=== PATIENT | female | born 1960 | race Caucasian/White ===

== ENCOUNTER 2023-07-17 08:23 | Outpatient (RCR) | payer OTHER, SELFPAY ==
[2023-06-19] VITALS (11 sets, daily range): BP systolic 119–146; BP diastolic 68–92
[2023-06-19 09:05] LABS: % Basophils 1.3 % (0-2); % Eosinophils 4.5 % (0-6); % Immature Granulocytes 0.8 % (0-0.5); % Lymphocytes 22.5 % (20.5-51.1); % Neutrophils 61.9 % (42.2-75.2); Absolute Basophils 0.1 10^3/uL (0-0.2); Absolute Eosinophils 0.2 10^3/uL (0-0.7); Absolute Lymphocytes 0.9 10^3/uL (1.2-3.4); Absolute Monocytes 0.3 10^3/uL (0.1-0.6); Absolute Neutrophils 2.3 10^3/uL (1.4-6.5); Hematocrit 35.3 % (37.0-47.0); Hemoglobin 12.1 g/dL (12.0-16.0); Mean Corp Hgb Conc. 34.3 g/dL (33.0-37.0); Mean Corpuscular Hgb 28.7 pg (27.0-31.0); Mean Corpuscular Volume 83.6 fL (81.0-99.0); Mean Platelet Volume 9.9 fL (7.4-10.4); Nucleated Red Blood Cells % 0 %; Platelet Count 328 10^3/uL (130-400); Red Blood Cell Count 4.22 10^6/uL (4.20-5.40); Red Cell Dist. Width 13.2 % (11.5-14.5); White Blood Cell Count 3.8 10^3/uL (4.8-10.8)
[2023-06-19 09:19] LABS: Blood Urea Nitrogen 28 mg/dl (7-17); Calcium 9.2 mg/dl (8.4-10.2); Carbon Dioxide 26 mmol/L (22-30); Chloride 105 mmol/L (98-107); Glucose 105 mg/dl (70-99); Potassium 3.9 mmol/L (3.5-5.1); Sodium 135 mmol/L (135-145); eGFR > 60.00
[2023-06-19] MEDS: KEYTRUDA 108 MG IV (09:59)
[2023-06-19] MEDS: ALOXI 5 MG IV (10:35)
[2023-06-19] MEDS: PEPCID 52 MG IV (10:36)
[2023-06-19] MEDS: DECADRON 52 MG IV (10:59)
[2023-06-19] MEDS: BENADRYL 51 MG IV (11:26)
[2023-06-19] MEDS: TAXOL/PACLITAXEL 271.666699999999992 MG IV (11:54)
[2023-06-19] MEDS: PARAPLATIN 266 MG IV (13:06)
[2023-06-26 08:00] VITALS: BP 134/91
[2023-06-26 08:12] LABS: % Basophils 0.5 % (0-2); % Eosinophils 3.8 % (0-6); % Immature Granulocytes 1.6 % (0-0.5); % Lymphocytes 31.4 % (20.5-51.1); % Monocytes 8.9 % (1.7-9.3); % Neutrophils 53.8 % (42.2-75.2); Absolute Eosinophils 0.1 10^3/uL (0-0.7); Absolute Immature Granulocytes 0.1 10^3/uL (0-0.05); Absolute Lymphocytes 1.2 10^3/uL (1.2-3.4); Absolute Monocytes 0.3 10^3/uL (0.1-0.6); Hematocrit 37.5 % (37.0-47.0); Hemoglobin 12.6 g/dL (12.0-16.0); Mean Corp Hgb Conc. 33.6 g/dL (33.0-37.0); Mean Corpuscular Hgb 28.8 pg (27.0-31.0); Mean Corpuscular Volume 85.6 fL (81.0-99.0); Mean Platelet Volume 9.8 fL (7.4-10.4); Platelet Count 321 10^3/uL (130-400); Red Blood Cell Count 4.38 10^6/uL (4.20-5.40); Red Cell Dist. Width 13.6 % (11.5-14.5); White Blood Cell Count 3.7 10^3/uL (4.8-10.8)
[2023-06-26 08:36] LABS: Blood Urea Nitrogen 31 mg/dl (7-17); Calcium 9.3 mg/dl (8.4-10.2); Carbon Dioxide 24 mmol/L (22-30); Chloride 105 mmol/L (98-107); Glucose 180 mg/dl (70-99); Potassium 4.2 mmol/L (3.5-5.1); Sodium 137 mmol/L (135-145); eGFR > 60.00
[2023-06-26] MEDS: PEPCID 52 MG IV (09:28)
[2023-06-26] MEDS: ALOXI 5 MG IV (09:29)
[2023-06-26] MEDS: DECADRON 52 MG IV (09:57)
[2023-06-26] MEDS: BENADRYL 51 MG IV (10:22)
[2023-06-26] MEDS: TAXOL/PACLITAXEL 271.666699999999992 MG IV (10:55)
[2023-06-26 11:00] VITALS: BP 119/70
[2023-06-26 11:30] VITALS: BP 131/77
[2023-06-26 12:00] VITALS: BP 121/75
[2023-06-26] MEDS: PARAPLATIN 265.800000000000011 MG IV (12:05)
[2023-06-26 12:30] VITALS: BP 125/73
[2023-06-26 13:00] VITALS: BP 124/73
[2023-07-03] VITALS (7 sets, daily range): BP systolic 110–130; BP diastolic 67–76
[2023-07-03 08:10] LABS: % Basophils 0.9 % (0-2); % Eosinophils 2.7 % (0-6); % Immature Granulocytes 2.2 % (0-0.5); % Lymphocytes 25.3 % (20.5-51.1); % Monocytes 11.2 % (1.7-9.3); % Neutrophils 57.7 % (42.2-75.2); Absolute Eosinophils 0.1 10^3/uL (0-0.7); Absolute Immature Granulocytes 0.1 10^3/uL (0-0.05); Absolute Lymphocytes 1.1 10^3/uL (1.2-3.4); Absolute Monocytes 0.5 10^3/uL (0.1-0.6); Absolute Neutrophils 2.6 10^3/uL (1.4-6.5); Hematocrit 35.5 % (37.0-47.0); Hemoglobin 12.2 g/dL (12.0-16.0); Mean Corp Hgb Conc. 34.4 g/dL (33.0-37.0); Mean Corpuscular Hgb 29.4 pg (27.0-31.0); Mean Corpuscular Volume 85.5 fL (81.0-99.0); Mean Platelet Volume 9.4 fL (7.4-10.4); Platelet Count 280 10^3/uL (130-400); Red Blood Cell Count 4.15 10^6/uL (4.20-5.40); White Blood Cell Count 4.5 10^3/uL (4.8-10.8)
[2023-07-03 08:30] LABS: ALT (SGPT) 89 U/L (0-35); AST (SGOT) 54 U/L (14-36); Albumin 4.2 g/dl (3.5-5.0); Alkaline Phosphatase 92 U/L (38-126); Blood Urea Nitrogen 24 mg/dl (7-17); Calcium 9.2 mg/dl (8.4-10.2); Carbon Dioxide 25 mmol/L (22-30); Chloride 106 mmol/L (98-107); Glucose 140 mg/dl (70-99); Potassium 3.9 mmol/L (3.5-5.1); Sodium 137 mmol/L (135-145); Total Bilirubin 0.5 mg/dl (0.2-1.3); Total Protein 6.7 g/dl (6.3-8.2); eGFR > 60.00
[2023-07-03] MEDS: PEPCID 52 MG IV (09:06)
[2023-07-03] MEDS: ALOXI 5 MG IV (09:07)
[2023-07-03] MEDS: DECADRON 52 MG IV (09:30)
[2023-07-03] MEDS: BENADRYL 51 MG IV (09:58)
[2023-07-03 10:27] LABS: TSH 0.98 uIU/ml (0.47-4.68)
[2023-07-03] MEDS: TAXOL/PACLITAXEL 271.666699999999992 MG IV (10:38)
[2023-07-03] MEDS: PARAPLATIN 266 MG IV (11:41)
[2023-07-05 03:37] LABS: Total T3 (Sendout) 135 ng/dL (80-200)
[2023-07-10 07:55] VITALS: BP 148/82
[2023-07-10 08:25] LABS: % Basophils 0.8 % (0-2); % Eosinophils 2.8 % (0-6); % Immature Granulocytes 2.8 % (0-0.5); % Lymphocytes 22.4 % (20.5-51.1); % Monocytes 9.4 % (1.7-9.3); % Neutrophils 61.8 % (42.2-75.2); Absolute Basophils 0.1 10^3/uL (0-0.2); Absolute Eosinophils 0.2 10^3/uL (0-0.7); Absolute Immature Granulocytes 0.2 10^3/uL (0-0.05); Absolute Lymphocytes 1.4 10^3/uL (1.2-3.4); Absolute Monocytes 0.6 10^3/uL (0.1-0.6); Absolute Neutrophils 3.7 10^3/uL (1.4-6.5); Hematocrit 35.2 % (37.0-47.0); Mean Corp Hgb Conc. 34.1 g/dL (33.0-37.0); Mean Corpuscular Hgb 29.3 pg (27.0-31.0); Mean Corpuscular Volume 85.9 fL (81.0-99.0); Mean Platelet Volume 10.1 fL (7.4-10.4); Platelet Count 262 10^3/uL (130-400); Red Cell Dist. Width 14.9 % (11.5-14.5)
[2023-07-10 08:36] LABS: ALT (SGPT) 65 U/L (0-35); AST (SGOT) 42 U/L (14-36); Alkaline Phosphatase 92 U/L (38-126); Blood Urea Nitrogen 24 mg/dl (7-17); Carbon Dioxide 24 mmol/L (22-30); Chloride 105 mmol/L (98-107); Glucose 119 mg/dl (70-99); Sodium 134 mmol/L (135-145); Total Bilirubin 0.4 mg/dl (0.2-1.3); Total Protein 6.5 g/dl (6.3-8.2); eGFR > 60.00
[2023-07-10] MEDS: CATHFLO/ACTIVASE 2 MG IV (09:38)
[2023-07-10] MEDS: KEYTRUDA 108 MG IV (10:24)
[2023-07-10] MEDS: PEPCID 52 MG IV (11:04)
[2023-07-10] MEDS: ALOXI 5 MG IV (11:05)
[2023-07-10] MEDS: DECADRON 52 MG IV (11:26)
[2023-07-10] MEDS: BENADRYL 51 MG IV (11:51)
--- NOTE | 2023-07-10 12:05 | PTCARENOTE ---
Pt back from doctor's appointment, no blood return noted from left sc port despite multiple attempts and repositioning. Flushing easily; cath-zak ordered and given at 0935.
+blood return noted at 1020, flushing easily. will monitor.
[2023-07-10] MEDS: TAXOL/PACLITAXEL 271.666699999999992 MG IV (12:19)
[2023-07-10 12:30] VITALS: BP 136/76
[2023-07-10 13:00] VITALS: BP 124/79
[2023-07-10] MEDS: PARAPLATIN 266 MG IV (13:28)
[2023-07-10 13:30] VITALS: BP 120/77
[2023-07-10 14:00] VITALS: BP 143/91
[2023-07-10 14:30] VITALS: BP 126/73
--- NOTE | 2023-07-17 08:55 | PTCARENOTE ---
Pt came in today for chemotherapy, upon assessment, pt noted to have a small reddened pin size area above her left sc port. Pt offers no complaints of pain, however, notes 'I feel it more, where before I didn't feel it at all.' Denies fevers at
home, temp here was 97.9. Does report chills at home. Also c/o upper (along bra line) intermittent abdominal discomfort that she took ultram/ibuprofen at home for. Pt reports fair appetite, with no recent n/v/d/c. TT Dr. Springer and Ruthann Lemus,
awaiting response. Placed #22 p left arm cephalic iv and labs drawn. Pt resting comfortable at present, will continue to monitor
[2023-07-17 09:10] LABS: % Basophils 1.4 % (0-2); % Eosinophils 2.5 % (0-6); % Immature Granulocytes 2.3 % (0-0.5); % Lymphocytes 25.1 % (20.5-51.1); % Neutrophils 59.7 % (42.2-75.2); Absolute Basophils 0.1 10^3/uL (0-0.2); Absolute Eosinophils 0.1 10^3/uL (0-0.7); Absolute Immature Granulocytes 0.1 10^3/uL (0-0.05); Absolute Lymphocytes 1.1 10^3/uL (1.2-3.4); Absolute Monocytes 0.4 10^3/uL (0.1-0.6); Absolute Neutrophils 2.6 10^3/uL (1.4-6.5); Hemoglobin 11.8 g/dL (12.0-16.0); Mean Corp Hgb Conc. 33.7 g/dL (33.0-37.0); Mean Corpuscular Hgb 29.3 pg (27.0-31.0); Mean Corpuscular Volume 86.8 fL (81.0-99.0); Mean Platelet Volume 9.9 fL (7.4-10.4); Nucleated Red Blood Cells % 0 %; Platelet Count 323 10^3/uL (130-400); Red Blood Cell Count 4.03 10^6/uL (4.20-5.40); Red Cell Dist. Width 15.9 % (11.5-14.5); White Blood Cell Count 4.3 10^3/uL (4.8-10.8)
[2023-07-17 09:12] VITALS: BP 133/89
[2023-07-17 09:33] LABS: ALT (SGPT) 97 U/L (0-35); AST (SGOT) 60 U/L (14-36); Albumin 4.1 g/dl (3.5-5.0); Alkaline Phosphatase 89 U/L (38-126); Blood Urea Nitrogen 25 mg/dl (7-17); Calcium 9.3 mg/dl (8.4-10.2); Carbon Dioxide 26 mmol/L (22-30); Chloride 107 mmol/L (98-107); Glucose 137 mg/dl (70-99); Potassium 4.1 mmol/L (3.5-5.1); Sodium 135 mmol/L (135-145); Total Bilirubin 0.4 mg/dl (0.2-1.3); Total Protein 6.7 g/dl (6.3-8.2); eGFR > 60.00
--- NOTE | 2023-07-17 09:45 | PTCARENOTE ---
Per md request, pt sent over to [facility] office (next door in [place]), to have port and breast wound evaluated.
--- NOTE | 2023-07-17 10:06 | PTCARENOTE ---
Per Concha from [facility], pt sent to IR to get left sc port evaluated, but will return to unit when finished, and does want pt to get treated today. will follow.
[2023-07-17] MEDS: ALOXI 5 MG IV (11:11)
[2023-07-17] MEDS: PEPCID 52 MG IV (11:11)
[2023-07-17] MEDS: DECADRON 52 MG IV (11:36)
[2023-07-17] MEDS: BENADRYL 51 MG IV (12:02)
[2023-07-17] MEDS: TAXOL/PACLITAXEL 271.666699999999992 MG IV (12:28)
[2023-07-17 12:30] VITALS: BP 125/77
--- NOTE | 2023-07-17 12:42 | PTCARENOTE ---
1100: pt back from IR, offers no complaints.
[2023-07-17 13:00] VITALS: BP 141/76
[2023-07-17 13:30] VITALS: BP 137/78
[2023-07-17] MEDS: PARAPLATIN 266.300000000000011 MG IV (13:37)
[2023-07-17 14:00] VITALS: BP 136/80
[2023-07-17 14:30] VITALS: BP 132/77
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
== END 2023-07-17 23:59 | disposition home or self-care (01) ==
LOC: OID 08:23
PROVIDERS: ATTENDING PHYSICIAN Internal Medicine Hematology & Oncology; FAMILY PHYSICIAN Nurse Practitioner Adult Health
DX: Z51.11 Encounter for antineoplastic chemotherapy (principal); C50.111 Malignant neoplasm of central portion of right female breast; C50.211 Malignant neoplasm of upper-inner quadrant of right female breast
CPT/HCPCS: 80048; 80053; 84436; 84443; 84480; 85025; 96367; 96374; 96375; 96413; 96415; 96417; J2469; J2997; J9045; J9267; J9271

== ENCOUNTER → 2023-07-17 10:31 | Outpatient (REF) | payer OTHER, SELFPAY ==
--- NOTE | 2023-07-17 10:48 | W.PN.UPDATE ---
Update Note
Progress Note Update
63 yo female with h/o breast cancer comes today for port site check. She denies tenderness, fever or warmth. She notes some erythema around the venotomy site with visible suture
There is some mild erythema noted to the venotomy site. Portion of the suture is exposed without wound dehiscence. The are is mildly erythematous but not warm or tender.. The port pocket looks good. Incision is CDI. No fluctuance or erythema.
A/P: 63 yo female presents with mild erythema at the venotomy site of her port. There is no fluctuance. No warmth or tenderness. The suture is partially exposed without wound dehiscence
Gave Rx for Keflex 500 mg po qid x 7 days and told her not to use port today.
Advised her to call us for new or worsening symptoms
== END ==
LOC: RADI 10:31
PROVIDERS: ATTENDING PHYSICIAN Internal Medicine Hematology & Oncology; FAMILY PHYSICIAN Nurse Practitioner Adult Health
DX: Z45.2 Encounter for adjustment and management of vascular access device (principal)

== ENCOUNTER → 2023-07-24 14:08 | Outpatient (REF) | payer OTHER, SELFPAY | LOC: RCS 14:08 | PROVIDERS: ATTENDING PHYSICIAN Internal Medicine Hematology & Oncology; FAMILY PHYSICIAN Nurse Practitioner Adult Health; REFERRING PHYSICIAN Surgery | DX: Z01.818 Encounter for other preprocedural examination (principal); C50.111 Malignant neoplasm of central portion of right female breast; C50.211 Malignant neoplasm of upper-inner quadrant of right female breast | CPT/HCPCS: 93306 ==

== ENCOUNTER → 2023-07-25 10:43 | Outpatient (REF) | payer OTHER, SELFPAY | LOC: PET 10:43 | PROVIDERS: ATTENDING PHYSICIAN Internal Medicine Hematology & Oncology | DX: C50.211 Malignant neoplasm of upper-inner quadrant of right female breast (principal) | CPT/HCPCS: 78815; A9552 ==

== ENCOUNTER 2023-07-29 06:20 | Day surgery (SDC) | payer OTHER, SELFPAY ==
[2023-07-29] VITALS (10 sets, daily range): BP systolic 82–146; BP diastolic 49–86; BMI 25.8
[2023-07-29] MEDS: TYLENOL 1000 MG PO (08:15)
[2023-07-29] MEDS: LOVENOX 40 MG SC (08:16)
--- NOTE | 2023-07-29 08:37 | PTCARENOTE ---
Patient has a port and Dr. Herzog wants the port accessed. Patient states that the port is not working the last time it was accessed. Dr. Herzog wanted it used in case a port study needs to be done. Will monitor patient.
--- NOTE | 2023-07-29 08:55 | PTCARENOTE ---
port accessed with good blood return.
== END 2023-07-29 12:18 | disposition home or self-care (01) ==
LOC: SDS 06:20
PROVIDERS: ATTENDING PHYSICIAN Surgery
DX: C50.911 Malignant neoplasm of unspecified site of right female breast (principal)
CPT/HCPCS: 19120; 88305; 88341; 88360; 93005

== ENCOUNTER 2023-08-14 07:38 | Outpatient (RCR) | payer OTHER, SELFPAY ==
[2023-08-07] VITALS (8 sets, daily range): BP systolic 130–142; BP diastolic 63–98
[2023-08-07 09:11] LABS: % Basophils 0.8 % (0-2); % Eosinophils 3.4 % (0-6); % Immature Granulocytes 0.8 % (0-0.5); % Lymphocytes 18.3 % (20.5-51.1); % Monocytes 14.6 % (1.7-9.3); % Neutrophils 62.1 % (42.2-75.2); Absolute Basophils 0.1 10^3/uL (0-0.2); Absolute Eosinophils 0.2 10^3/uL (0-0.7); Absolute Immature Granulocytes 0.1 10^3/uL (0-0.05); Absolute Lymphocytes 1.1 10^3/uL (1.2-3.4); Absolute Monocytes 0.9 10^3/uL (0.1-0.6); Absolute Neutrophils 3.7 10^3/uL (1.4-6.5); Hematocrit 38.4 % (37.0-47.0); Hemoglobin 12.8 g/dL (12.0-16.0); Mean Corp Hgb Conc. 33.3 g/dL (33.0-37.0); Mean Corpuscular Hgb 29.4 pg (27.0-31.0); Mean Corpuscular Volume 88.1 fL (81.0-99.0); Mean Platelet Volume 9.2 fL (7.4-10.4); Platelet Count 333 10^3/uL (130-400); Red Blood Cell Count 4.36 10^6/uL (4.20-5.40); Red Cell Dist. Width 16.5 % (11.5-14.5); White Blood Cell Count 5.9 10^3/uL (4.8-10.8)
[2023-08-07 09:29] LABS: ALT (SGPT) 237 U/L (0-35); AST (SGOT) 203 U/L (14-36); Albumin 4.1 g/dl (3.5-5.0); Alkaline Phosphatase 140 U/L (38-126); Blood Urea Nitrogen 21 mg/dl (7-17); Calcium 9.2 mg/dl (8.4-10.2); Carbon Dioxide 26 mmol/L (22-30); Chloride 105 mmol/L (98-107); Glucose 116 mg/dl (70-99); Sodium 135 mmol/L (135-145); Total Bilirubin 0.4 mg/dl (0.2-1.3); Total Protein 6.7 g/dl (6.3-8.2); eGFR > 60.00
[2023-08-07] MEDS: EMEND 150 MG IV (10:31)
[2023-08-07] MEDS: ALOXI 5 MG IV (11:12)
[2023-08-07] MEDS: DECADRON 51 MG IV (11:12)
[2023-08-07] MEDS: ADRIAMYCIN 25 MG IV (11:45)
[2023-08-07] MEDS: CYCLOPHOSPHAMIDE 255.039999999999992 MG IV (11:57)
[2023-08-08] MEDS: NSS 500 IV (13:11)
[2023-08-08] MEDS: NYVEPRIA 6 MG SC (13:12)
[2023-08-08 13:27] VITALS: BP 139/78
--- NOTE | 2023-08-08 14:25 | HP.FOC2 ---
Focused History & Physical
- Chief Complaint
HPI:
Chief Complaint: erythema under bilateral breasts
- Review of Systems
Review of Pertinent Systems: All Systems Negative Except for the Following Positives (nausea, pain to right chest wall known breast lesion)
- Medication
See Medication form for detailed medications: Yes
Medication List (including Herbals & OTC):
magnesium 250 mg tablet 500 mg PO DAILY 05/27/23
tramadol 50 mg tablet 50 mg PO .Q8 PRN pain 05/27/23
prochlorperazine maleate 10 mg tablet (Compazine) 10 mg PO PRN PRN nausea 06/19/23
Tylenol 1,000 mg PO .Q8 PRN pain 08/07/23
nystatin 100,000 unit/gram topical powder 1 applic topical BID 30 days #30 grams 08/08/23
Medications Reviewed: Yes
- Allergies and Reactions
Patient has Allergies: No
Noted Allergies and Reactions:
Allergy/AdvReac Type Severity Reaction Status Date / Time
No Known Allergies Allergy Unverified 08/08/23 13:26
- Pertinent Physical Exam
All Other Systems: Negative
Head/Neck: Normal
Lungs: Normal
Heart: Normal
Abdomen: Normal
Extremities: Normal
Neurological: Normal
Other: breast with wound to right chest wall 1'oclock 4x3 raise 1/2 inch
- Diagnosis / Assessment
History of breast cancer undergoing neoadjuvant treatment with chemotherapy. Treated 08/07/2023 with adriamycin and cytoxan. here today for neulasta and fluids.
- Plan / Procedure
Plan:
Start nystatin under bilateral breasts bid as needed for rash. Rx sent electronically.
Consider crushing flagyl and sprinkling on wound if foul odor develops. Has rx. Tried orally but unable to tolerate.
Continue to follow.
Call for questions or concerns. Contact information known and re-provided.
Follow up with Dr. Springer in 2 weeks for office visit prior to next AC infusion.
[2023-08-14 08:19] LABS: Hematocrit 37.6 % (37.0-47.0); Hemoglobin 12.6 g/dL (12.0-16.0); Mean Corp Hgb Conc. 33.5 g/dL (33.0-37.0); Mean Corpuscular Hgb 29.6 pg (27.0-31.0); Mean Corpuscular Volume 88.3 fL (81.0-99.0); Mean Platelet Volume 9.6 fL (7.4-10.4); Platelet Count 281 10^3/uL (130-400); Red Blood Cell Count 4.26 10^6/uL (4.20-5.40); Red Cell Dist. Width 16.5 % (11.5-14.5); White Blood Cell Count 10.4 10^3/uL (4.8-10.8)
[2023-08-14 08:49] LABS: ALT (SGPT) 89 U/L (0-35); AST (SGOT) 41 U/L (14-36); Albumin 4.2 g/dl (3.5-5.0); Alkaline Phosphatase 141 U/L (38-126); Blood Urea Nitrogen 26 mg/dl (7-17); Calcium 9.5 mg/dl (8.4-10.2); Carbon Dioxide 26 mmol/L (22-30); Chloride 102 mmol/L (98-107); Glucose 104 mg/dl (70-99); Potassium 4.1 mmol/L (3.5-5.1); Sodium 134 mmol/L (135-145); Total Bilirubin 0.2 mg/dl (0.2-1.3); Total Protein 6.9 g/dl (6.3-8.2); eGFR > 60.00
[2023-08-14 11:34] LABS: Absolute Neutrophils -Man Diff 5.5 10^3/uL (1.4-6.5); Band Neutrophils 4 % (0-3); Lymphocytes 17 % (20-51); Segmented Neutrophils 49 % (42-75)
[2023-08-14 11:35] LABS: Eosinophils 8 % (0-6); Metamyelocytes 4 % (-); Monocytes 16 % (2-9); Myelocytes 2 % (-); Normal RBC Morphology Yes; Platelets Checked Yes; Total Cells Counted 100
== END 2023-08-17 23:59 | disposition home or self-care (01) ==
LOC: OID 07:38
PROVIDERS: ATTENDING PHYSICIAN Internal Medicine Hematology & Oncology; FAMILY PHYSICIAN Nurse Practitioner Adult Health
DX: Z51.11 Encounter for antineoplastic chemotherapy (principal); I10 Essential (primary) hypertension (principal); C50.111 Malignant neoplasm of central portion of right female breast; C50.211 Malignant neoplasm of upper-inner quadrant of right female breast; Z17.0 Estrogen receptor positive status [ER+]
CPT/HCPCS: 36415; 80053; 85025; 96360; 96367; 96372; 96375; 96411; 96413; J1453; J2469; J9000; J9070; Q5122

== ENCOUNTER 2023-09-09 08:31 | Outpatient (RCR) | payer OTHER, SELFPAY ==
[2023-08-21] VITALS (7 sets, daily range): BP systolic 113–153; BP diastolic 68–91
[2023-08-21 09:43] LABS: % Basophils 1.1 % (0-2); % Eosinophils 3.4 % (0-6); % Immature Granulocytes 4.1 % (0-0.5); % Lymphocytes 24.5 % (20.5-51.1); % Monocytes 12.8 % (1.7-9.3); % Neutrophils 54.1 % (42.2-75.2); Absolute Basophils 0.1 10^3/uL (0-0.2); Absolute Eosinophils 0.2 10^3/uL (0-0.7); Absolute Immature Granulocytes 0.2 10^3/uL (0-0.05); Absolute Lymphocytes 1.2 10^3/uL (1.2-3.4); Absolute Monocytes 0.6 10^3/uL (0.1-0.6); Absolute Neutrophils 2.5 10^3/uL (1.4-6.5); Hemoglobin 12.5 g/dL (12.0-16.0); Mean Corp Hgb Conc. 32.9 g/dL (33.0-37.0); Mean Corpuscular Hgb 29.1 pg (27.0-31.0); Mean Corpuscular Volume 88.6 fL (81.0-99.0); Mean Platelet Volume 9.8 fL (7.4-10.4); Platelet Count 286 10^3/uL (130-400); Red Blood Cell Count 4.29 10^6/uL (4.20-5.40); Red Cell Dist. Width 16.9 % (11.5-14.5); White Blood Cell Count 4.7 10^3/uL (4.8-10.8)
[2023-08-21 10:33] LABS: ALT (SGPT) 66 U/L (0-35); AST (SGOT) 51 U/L (14-36); Albumin 4.1 g/dl (3.5-5.0); Alkaline Phosphatase 117 U/L (38-126); Blood Urea Nitrogen 29 mg/dl (7-17); Calcium 9.6 mg/dl (8.4-10.2); Carbon Dioxide 23 mmol/L (22-30); Chloride 108 mmol/L (98-107); Glucose 95 mg/dl (70-99); Potassium 4.2 mmol/L (3.5-5.1); Sodium 137 mmol/L (135-145); Total Bilirubin 0.3 mg/dl (0.2-1.3); Total Protein 6.7 g/dl (6.3-8.2); eGFR > 60.00
[2023-08-21] MEDS: ALOXI 5 MG IV (10:44)
[2023-08-21] MEDS: EMEND 150 MG IV (10:44)
[2023-08-21] MEDS: DECADRON 51 MG IV (11:20)
[2023-08-21] MEDS: ADRIAMYCIN 50 MG IV (11:51)
[2023-08-21] MEDS: CYCLOPHOSPHAMIDE 255.039999999999992 MG IV (12:03)
[2023-08-22 13:45] VITALS: BP 155/95
[2023-08-22] MEDS: NYVEPRIA 6 MG SC (13:53)
[2023-08-29 09:01] LABS: Hematocrit 34.2 % (37.0-47.0); Hemoglobin 11.7 g/dL (12.0-16.0); Mean Corp Hgb Conc. 34.2 g/dL (33.0-37.0); Mean Corpuscular Hgb 29.3 pg (27.0-31.0); Mean Corpuscular Volume 85.5 fL (81.0-99.0); Mean Platelet Volume 10.6 fL (7.4-10.4); Platelet Count 262 10^3/uL (130-400); Red Cell Dist. Width 16.8 % (11.5-14.5); White Blood Cell Count 3.3 10^3/uL (4.8-10.8)
[2023-08-29 09:38] LABS: ALT (SGPT) 573 U/L (0-35); AST (SGOT) 122 U/L (14-36); Albumin 4.4 g/dl (3.5-5.0); Alkaline Phosphatase 232 U/L (38-126); Blood Urea Nitrogen 13 mg/dl (7-17); Calcium 9.9 mg/dl (8.4-10.2); Carbon Dioxide 22 mmol/L (22-30); Chloride 107 mmol/L (98-107); Glucose 117 mg/dl (70-99); Potassium 3.9 mmol/L (3.5-5.1); Sodium 136 mmol/L (135-145); Total Bilirubin 0.4 mg/dl (0.2-1.3); eGFR > 60.00
[2023-08-29 10:41] LABS: Absolute Neutrophils -Man Diff 1.5 10^3/uL (1.4-6.5); Band Neutrophils 0 % (0-3); Eosinophils 4 % (0-6); Lymphocytes 30 % (20-51); Monocytes 18 % (2-9); Platelets Checked Yes; Segmented Neutrophils 48 % (42-75)
[2023-08-29 10:42] LABS: Anisocytosis 1+; Hypochromasia Slight; Normal RBC Morphology No; Total Cells Counted 100
[2023-09-02 09:47] LABS: ALT (SGPT) 207 U/L (0-35); AST (SGOT) 44 U/L (14-36); Albumin 4.4 g/dl (3.5-5.0); Alkaline Phosphatase 166 U/L (38-126); Direct Bilirubin 0.3 mg/dl (0.0-0.4); Total Bilirubin 0.3 mg/dl (0.2-1.3); Total Protein 6.8 g/dl (6.3-8.2)
[2023-09-02 10:19] LABS: Hepatitis B Surface Antigen Negative (Negative)
[2023-09-02 11:06] LABS: Hepatitis B Core Ab, Total Negative (Negative); Hepatitis B Surface Antibody Negative
[2023-09-03 10:06] LABS: % Basophils 0.7 % (0-2); % Eosinophils 0.8 % (0-6); % Lymphocytes 15.3 % (20.5-51.1); % Monocytes 12.1 % (1.7-9.3); % Neutrophils 61.1 % (42.2-75.2); Absolute Basophils 0.1 10^3/uL (0-0.2); Absolute Eosinophils 0.1 10^3/uL (0-0.7); Absolute Immature Granulocytes 0.9 10^3/uL (0-0.05); Absolute Lymphocytes 1.3 10^3/uL (1.2-3.4); Absolute Monocytes 1.1 10^3/uL (0.1-0.6); Absolute Neutrophils 5.3 10^3/uL (1.4-6.5); Hematocrit 35.9 % (37.0-47.0); Hemoglobin 11.9 g/dL (12.0-16.0); Mean Corp Hgb Conc. 33.1 g/dL (33.0-37.0); Mean Corpuscular Hgb 29.6 pg (27.0-31.0); Mean Corpuscular Volume 89.3 fL (81.0-99.0); Mean Platelet Volume 9.8 fL (7.4-10.4); Platelet Count 364 10^3/uL (130-400); Red Blood Cell Count 4.02 10^6/uL (4.20-5.40); Red Cell Dist. Width 17.5 % (11.5-14.5); White Blood Cell Count 8.7 10^3/uL (4.8-10.8)
[2023-09-03 10:48] LABS: ALT (SGPT) 150 U/L (0-35); AST (SGOT) 38 U/L (14-36); Albumin 4.4 g/dl (3.5-5.0); Alkaline Phosphatase 154 U/L (38-126); Blood Urea Nitrogen 23 mg/dl (7-17); Calcium 10.1 mg/dl (8.4-10.2); Carbon Dioxide 26 mmol/L (22-30); Chloride 104 mmol/L (98-107); Glucose 122 mg/dl (70-99); Potassium 4.1 mmol/L (3.5-5.1); Sodium 137 mmol/L (135-145); Total Bilirubin 0.3 mg/dl (0.2-1.3); Total Protein 6.8 g/dl (6.3-8.2); eGFR > 60.00
[2023-09-04 03:25] LABS: F-Actin Antibody IgG 4 Units (0-19)
[2023-09-04 03:34] LABS: ANA, IgG Reflex to HEp-2 None Detected (None Detected)
[2023-09-04 10:03] VITALS: BP 142/78
[2023-09-04] MEDS: EMEND 150 MG IV (11:22)
[2023-09-04] MEDS: DECADRON 51 MG IV (11:58)
[2023-09-04] MEDS: ALOXI 5 MG IV (11:58)
[2023-09-04 12:38] VITALS: BP 131/70
[2023-09-04] MEDS: ADRIAMYCIN 25 MG IV (12:40)
[2023-09-04] MEDS: CYCLOPHOSPHAMIDE 255.039999999999992 MG IV (12:51)
[2023-09-04 13:00] VITALS: BP 136/72
[2023-09-04 13:30] VITALS: BP 135/71
[2023-09-04 14:00] VITALS: BP 133/68
[2023-09-05] MEDS: NYVEPRIA 6 MG SC (13:26)
[2023-09-05 14:17] VITALS: BP 150/76
[2023-09-09 09:05] LABS: % Basophils 0.2 % (0-2); % Eosinophils 0.3 % (0-6); % Immature Granulocytes 1.3 % (0-0.5); % Lymphocytes 8.5 % (20.5-51.1); % Monocytes 8.5 % (1.7-9.3); % Neutrophils 81.2 % (42.2-75.2); Absolute Immature Granulocytes 0.2 10^3/uL (0-0.05); Absolute Neutrophils 9.9 10^3/uL (1.4-6.5); Hematocrit 33.9 % (37.0-47.0); Hemoglobin 11.2 g/dL (12.0-16.0); Mean Corpuscular Hgb 29.7 pg (27.0-31.0); Mean Corpuscular Volume 89.9 fL (81.0-99.0); Mean Platelet Volume 9.4 fL (7.4-10.4); Platelet Count 360 10^3/uL (130-400); Red Blood Cell Count 3.77 10^6/uL (4.20-5.40); Red Cell Dist. Width 17.8 % (11.5-14.5); White Blood Cell Count 12.2 10^3/uL (4.8-10.8)
[2023-09-09 09:34] LABS: ALT (SGPT) 46 U/L (0-35); AST (SGOT) 27 U/L (14-36); Albumin 4.2 g/dl (3.5-5.0); Alkaline Phosphatase 188 U/L (38-126); Direct Bilirubin 0.3 mg/dl (0.0-0.4); Total Bilirubin 0.3 mg/dl (0.2-1.3); Total Protein 6.5 g/dl (6.3-8.2)
== END 2023-09-15 15:53 | disposition home or self-care (01) ==
LOC: OID 08:31
PROVIDERS: ATTENDING PHYSICIAN Internal Medicine Hematology & Oncology; FAMILY PHYSICIAN Nurse Practitioner Adult Health
DX: Z51.11 Encounter for antineoplastic chemotherapy (principal); C50.111 Malignant neoplasm of central portion of right female breast; C50.211 Malignant neoplasm of upper-inner quadrant of right female breast; Z17.0 Estrogen receptor positive status [ER+]
CPT/HCPCS: 36415; 80053; 80076; 85025; 86015; 86038; 86704; 86706; 87340; 96365; 96367; 96368; 96372; 96375; 96411; 96413; J1453; J2469; J9000; J9070; Q5122

== ENCOUNTER → 2023-09-16 08:35 | Outpatient (REF) | payer OTHER, SELFPAY ==
[2023-09-16 09:40] LABS: ALT (SGPT) 44 U/L (0-35); AST (SGOT) 32 U/L (14-36); Albumin 4.2 g/dl (3.5-5.0); Alkaline Phosphatase 125 U/L (38-126); Direct Bilirubin 0.3 mg/dl (0.0-0.4); Total Bilirubin 0.3 mg/dl (0.2-1.3); Total Protein 6.8 g/dl (6.3-8.2)
== END ==
LOC: OIDL 08:35
PROVIDERS: ATTENDING PHYSICIAN Internal Medicine Hematology & Oncology
DX: C50.111 Malignant neoplasm of central portion of right female breast (principal); C50.211 Malignant neoplasm of upper-inner quadrant of right female breast
CPT/HCPCS: 36415; 80076

== ENCOUNTER → 2023-10-16 14:27 | Outpatient (REF) | payer OTHER, SELFPAY | LOC: RAD 14:27 | PROVIDERS: ATTENDING PHYSICIAN Nurse Practitioner Family; FAMILY PHYSICIAN Nurse Practitioner Adult Health | DX: C50.111 Malignant neoplasm of central portion of right female breast (principal); C50.211 Malignant neoplasm of upper-inner quadrant of right female breast | CPT/HCPCS: 71046 ==

== ENCOUNTER 2023-10-17 13:03 | Outpatient (RCR) | payer OTHER, SELFPAY ==
[2023-09-18 08:28] LABS: % Basophils 0.5 % (0-2); % Eosinophils 0.5 % (0-6); % Immature Granulocytes 9.1 % (0-0.5); % Lymphocytes 10.7 % (20.5-51.1); % Monocytes 11.1 % (1.7-9.3); % Neutrophils 68.1 % (42.2-75.2); Absolute Basophils 0.1 10^3/uL (0-0.2); Absolute Eosinophils 0.1 10^3/uL (0-0.7); Absolute Immature Granulocytes 1.4 10^3/uL (0-0.05); Absolute Lymphocytes 1.6 10^3/uL (1.2-3.4); Absolute Monocytes 1.7 10^3/uL (0.1-0.6); Absolute Neutrophils 10.4 10^3/uL (1.4-6.5); Hematocrit 37.4 % (37.0-47.0); Hemoglobin 12.6 g/dL (12.0-16.0); Mean Corp Hgb Conc. 33.7 g/dL (33.0-37.0); Mean Corpuscular Hgb 29.8 pg (27.0-31.0); Mean Corpuscular Volume 88.4 fL (81.0-99.0); Mean Platelet Volume 9.7 fL (7.4-10.4); Platelet Count 266 10^3/uL (130-400); Red Blood Cell Count 4.23 10^6/uL (4.20-5.40); Red Cell Dist. Width 18.1 % (11.5-14.5); White Blood Cell Count 15.3 10^3/uL (4.8-10.8)
[2023-09-18 09:23] LABS: ALT (SGPT) 50 U/L (0-35); AST (SGOT) 34 U/L (14-36); Albumin 4.3 g/dl (3.5-5.0); Alkaline Phosphatase 113 U/L (38-126); Blood Urea Nitrogen 31 mg/dl (7-17); Calcium 9.5 mg/dl (8.4-10.2); Carbon Dioxide 23 mmol/L (22-30); Chloride 106 mmol/L (98-107); Glucose 107 mg/dl (70-99); Potassium 4.3 mmol/L (3.5-5.1); Sodium 136 mmol/L (135-145); Total Bilirubin 0.3 mg/dl (0.2-1.3); Total Protein 6.8 g/dl (6.3-8.2); eGFR > 60.00
[2023-09-18] MEDS: CATHFLO/ACTIVASE 2 MG IV (09:32)
[2023-09-18 09:50] VITALS: BP 149/70
[2023-09-18] MEDS: ALOXI 5 MG IV (10:31)
[2023-09-18] MEDS: EMEND 150 MG IV (10:32)
[2023-09-18] MEDS: DECADRON 51 MG IV (11:10)
--- NOTE | 2023-09-18 11:34 | PTCARENOTE ---
0915: Pt had no blood return from her left sc port this am despite multiple attempts; cath-zak ordered and given.
1025: +blood return noted from left sc port will follow.
[2023-09-18] MEDS: ADRIAMYCIN 50 MG IV (11:42)
[2023-09-18] MEDS: CYCLOPHOSPHAMIDE 255.039999999999992 MG IV (11:43)
[2023-09-18 12:55] VITALS: BP 127/78
[2023-09-19 13:00] VITALS: BP 158/85
[2023-09-19] MEDS: NYVEPRIA 6 MG SC (13:08)
[2023-09-25 08:07] LABS: % Basophils 0.4 % (0-2); % Eosinophils 3.9 % (0-6); % Immature Granulocytes 3.4 % (0-0.5); % Lymphocytes 13.3 % (20.5-51.1); Absolute Eosinophils 0.2 10^3/uL (0-0.7); Absolute Immature Granulocytes 0.2 10^3/uL (0-0.05); Absolute Lymphocytes 0.8 10^3/uL (1.2-3.4); Absolute Monocytes 0.8 10^3/uL (0.1-0.6); Absolute Neutrophils 3.7 10^3/uL (1.4-6.5); Hematocrit 35.7 % (37.0-47.0); Hemoglobin 11.7 g/dL (12.0-16.0); Mean Corp Hgb Conc. 32.8 g/dL (33.0-37.0); Mean Corpuscular Hgb 29.5 pg (27.0-31.0); Mean Corpuscular Volume 89.9 fL (81.0-99.0); Mean Platelet Volume 10.6 fL (7.4-10.4); Platelet Count 199 10^3/uL (130-400); Red Blood Cell Count 3.97 10^6/uL (4.20-5.40); Red Cell Dist. Width 17.8 % (11.5-14.5); White Blood Cell Count 5.6 10^3/uL (4.8-10.8)
[2023-09-25 09:43] LABS: ALT (SGPT) 37 U/L (0-35); AST (SGOT) 23 U/L (14-36); Alkaline Phosphatase 125 U/L (38-126); Blood Urea Nitrogen 25 mg/dl (7-17); Calcium 9.3 mg/dl (8.4-10.2); Carbon Dioxide 26 mmol/L (22-30); Chloride 106 mmol/L (98-107); Glucose 133 mg/dl (70-99); Potassium 3.9 mmol/L (3.5-5.1); Sodium 134 mmol/L (135-145); Total Bilirubin 0.3 mg/dl (0.2-1.3); Total Protein 6.4 g/dl (6.3-8.2); eGFR > 60.00
[2023-09-26 16:27] LABS: NT-proBNP 32.5 pg/ml
[2023-10-02 08:30] VITALS: BP 157/83
[2023-10-02 08:53] LABS: % Basophils 0.9 % (0-2); % Eosinophils 3.2 % (0-6); % Lymphocytes 13.7 % (20.5-51.1); % Monocytes 12.1 % (1.7-9.3); % Neutrophils 62.1 % (42.2-75.2); Absolute Basophils 0.1 10^3/uL (0-0.2); Absolute Eosinophils 0.3 10^3/uL (0-0.7); Absolute Immature Granulocytes 0.8 10^3/uL (0-0.05); Absolute Lymphocytes 1.4 10^3/uL (1.2-3.4); Absolute Monocytes 1.2 10^3/uL (0.1-0.6); Absolute Neutrophils 6.1 10^3/uL (1.4-6.5); Hematocrit 38.5 % (37.0-47.0); Hemoglobin 12.6 g/dL (12.0-16.0); Mean Corp Hgb Conc. 32.7 g/dL (33.0-37.0); Mean Corpuscular Hgb 29.4 pg (27.0-31.0); Mean Platelet Volume 9.1 fL (7.4-10.4); Platelet Count 287 10^3/uL (130-400); Red Blood Cell Count 4.28 10^6/uL (4.20-5.40); White Blood Cell Count 9.9 10^3/uL (4.8-10.8)
[2023-10-02 09:13] LABS: ALT (SGPT) 37 U/L (0-35); AST (SGOT) 25 U/L (14-36); Albumin 4.2 g/dl (3.5-5.0); Alkaline Phosphatase 92 U/L (38-126); Blood Urea Nitrogen 32 mg/dl (7-17); Calcium 9.5 mg/dl (8.4-10.2); Carbon Dioxide 24 mmol/L (22-30); Chloride 106 mmol/L (98-107); Glucose 148 mg/dl (70-99); Potassium 3.7 mmol/L (3.5-5.1); Sodium 137 mmol/L (135-145); Total Bilirubin 0.3 mg/dl (0.2-1.3); Total Protein 6.7 g/dl (6.3-8.2); eGFR > 60.00
[2023-10-02] MEDS: ALOXI 5 MG IV (09:52)
[2023-10-02] MEDS: EMEND 150 MG IV (09:52)
[2023-10-02] MEDS: DECADRON 51 MG IV (10:34)
[2023-10-02] MEDS: CYCLOPHOSPHAMIDE 255.039999999999992 MG IV (11:12)
[2023-10-02] MEDS: ADRIAMYCIN 50 MG IV (11:12)
[2023-10-03 14:34] VITALS: BP 151/84
[2023-10-03] MEDS: NYVEPRIA 6 MG SC (14:39)
[2023-10-09 10:13] LABS: % Basophils 0.9 % (0-2); % Eosinophils 3.3 % (0-6); % Immature Granulocytes 3.1 % (0-0.5); % Lymphocytes 5.5 % (20.5-51.1); % Monocytes 19.2 % (1.7-9.3); Absolute Eosinophils 0.1 10^3/uL (0-0.7); Absolute Immature Granulocytes 0.1 10^3/uL (0-0.05); Absolute Lymphocytes 0.2 10^3/uL (1.2-3.4); Absolute Monocytes 0.8 10^3/uL (0.1-0.6); Absolute Neutrophils 2.9 10^3/uL (1.4-6.5); Hematocrit 36.7 % (37.0-47.0); Hemoglobin 12.1 g/dL (12.0-16.0); Mean Corpuscular Hgb 29.8 pg (27.0-31.0); Mean Corpuscular Volume 90.4 fL (81.0-99.0); Mean Platelet Volume 8.9 fL (7.4-10.4); Platelet Count 265 10^3/uL (130-400); Red Blood Cell Count 4.06 10^6/uL (4.20-5.40); Red Cell Dist. Width 16.9 % (11.5-14.5); White Blood Cell Count 4.2 10^3/uL (4.8-10.8)
[2023-10-16 08:45] VITALS: BP 128/86
[2023-10-16 09:01] LABS: % Basophils 0.7 % (0-2); % Eosinophils 1.8 % (0-6); % Immature Granulocytes 6.5 % (0-0.5); % Lymphocytes 3.7 % (20.5-51.1); % Monocytes 9.3 % (1.7-9.3); Absolute Basophils 0.1 10^3/uL (0-0.2); Absolute Eosinophils 0.3 10^3/uL (0-0.7); Absolute Lymphocytes 0.6 10^3/uL (1.2-3.4); Absolute Monocytes 1.4 10^3/uL (0.1-0.6); Hematocrit 38.6 % (37.0-47.0); Hemoglobin 12.8 g/dL (12.0-16.0); Mean Corp Hgb Conc. 33.2 g/dL (33.0-37.0); Mean Corpuscular Hgb 29.5 pg (27.0-31.0); Mean Corpuscular Volume 88.9 fL (81.0-99.0); Mean Platelet Volume 9.3 fL (7.4-10.4); Platelet Count 232 10^3/uL (130-400); Red Blood Cell Count 4.34 10^6/uL (4.20-5.40); Red Cell Dist. Width 16.5 % (11.5-14.5); White Blood Cell Count 15.3 10^3/uL (4.8-10.8)
[2023-10-16 09:20] LABS: ALT (SGPT) 26 U/L (0-35); AST (SGOT) 26 U/L (14-36); Albumin 4.2 g/dl (3.5-5.0); Alkaline Phosphatase 94 U/L (38-126); Blood Urea Nitrogen 23 mg/dl (7-17); Calcium 9.4 mg/dl (8.4-10.2); Carbon Dioxide 22 mmol/L (22-30); Chloride 105 mmol/L (98-107); Glucose 134 mg/dl (70-99); Sodium 138 mmol/L (135-145); Total Bilirubin 0.4 mg/dl (0.2-1.3); Total Protein 6.8 g/dl (6.3-8.2); eGFR > 60.00
--- NOTE | 2023-10-16 10:07 | PTCARENOTE ---
0940: pt's hr on admission 112, waited approximately 15-20 minutes before re-checking, was 105-110 at rest, pt states slight cough, but is attributing this to seasonal allergies. pox 95% ra; Pt's temp on arrival was 98.6, rechecked after labs back
(wbc 15.3) was 101.1 temporal and 100.5 axillary. TT DISK RECORDIST Allan and MD Springer and message received to send patient over to office to be evaluated. Pt updated, will continue to follow.
[2023-10-16] MEDS: EMEND 150 MG IV (11:53)
[2023-10-16] MEDS: ALOXI 5 MG IV (11:53)
[2023-10-16] MEDS: DECADRON 51 MG IV (12:31)
[2023-10-16] MEDS: ADRIAMYCIN 50 MG IV (12:51)
[2023-10-16] MEDS: CYCLOPHOSPHAMIDE 255.039999999999992 MG IV (12:52)
[2023-10-17 13:05] VITALS: BP 152/89
[2023-10-17] MEDS: NYVEPRIA 6 MG SC (13:17)
== END 2023-10-17 23:59 | disposition home or self-care (01) ==
LOC: OID 13:03
PROVIDERS: ATTENDING PHYSICIAN Internal Medicine Hematology & Oncology; FAMILY PHYSICIAN Nurse Practitioner Adult Health
DX: C50.111 Malignant neoplasm of central portion of right female breast (principal); C50.211 Malignant neoplasm of upper-inner quadrant of right female breast; Z51.11 Encounter for antineoplastic chemotherapy; Z17.0 Estrogen receptor positive status [ER+]
CPT/HCPCS: 36415; 36591; 80053; 83880; 85025; 96367; 96372; 96375; 96411; 96413; J1453; J2469; J2997; J9000; J9073; Q5122

== ENCOUNTER → 2023-10-27 07:14 | Outpatient (REF) | payer OTHER, SELFPAY | LOC: RCS 07:14 | PROVIDERS: ATTENDING PHYSICIAN Internal Medicine Cardiovascular Disease; FAMILY PHYSICIAN Nurse Practitioner Adult Health | DX: Z85.3 Personal history of malignant neoplasm of breast (principal); T45.1X5D Adverse effect of antineoplastic and immunosuppressive drugs, subsequent encounter | CPT/HCPCS: 93306; 93356 ==

== ENCOUNTER → 2023-10-31 13:07 | Outpatient (REF) | payer OTHER, SELFPAY | LOC: RAD 13:07 | PROVIDERS: ATTENDING PHYSICIAN Nurse Practitioner Family; FAMILY PHYSICIAN Nurse Practitioner Adult Health | DX: C50.111 Malignant neoplasm of central portion of right female breast (principal); C50.211 Malignant neoplasm of upper-inner quadrant of right female breast | CPT/HCPCS: 71270; Q9967 ==

== ENCOUNTER → 2023-11-14 08:53 | Outpatient (REF) | payer OTHER, SELFPAY | LOC: RAD 08:53 | PROVIDERS: ATTENDING PHYSICIAN Internal Medicine Hematology & Oncology; FAMILY PHYSICIAN Nurse Practitioner Adult Health | DX: R14.0 Abdominal distension (gaseous) (principal); R10.84 Generalized abdominal pain | CPT/HCPCS: 74177; Q9967 ==

== ENCOUNTER 2023-11-14 14:09 | Outpatient (RCR) | payer OTHER, SELFPAY ==
[2023-10-23 09:57] LABS: % Basophils 3.4 % (0-2); % Eosinophils 14.8 % (0-6); % Immature Granulocytes 1.1 % (0-0.5); % Lymphocytes 22.7 % (20.5-51.1); % Monocytes 19.3 % (1.7-9.3); % Neutrophils 38.7 % (42.2-75.2); Absolute Eosinophils 0.1 10^3/uL (0-0.7); Absolute Lymphocytes 0.2 10^3/uL (1.2-3.4); Absolute Monocytes 0.2 10^3/uL (0.1-0.6); Hematocrit 35.7 % (37.0-47.0); Hemoglobin 11.8 g/dL (12.0-16.0); Mean Corp Hgb Conc. 33.1 g/dL (33.0-37.0); Mean Corpuscular Hgb 29.5 pg (27.0-31.0); Mean Corpuscular Volume 89.3 fL (81.0-99.0); Mean Platelet Volume 8.5 fL (7.4-10.4); Platelet Count 206 10^3/uL (130-400); Red Cell Dist. Width 15.8 % (11.5-14.5)
[2023-10-23 10:03] LABS: Absolute Neutrophils 0.3 10^3/uL (1.4-6.5); White Blood Cell Count 0.9 10^3/uL (4.8-10.8)
[2023-10-23 11:00] VITALS: BP 125/90
[2023-10-23] MEDS: NSS 1000 IV (11:15)
[2023-10-23 11:39] LABS: ALT (SGPT) 21 U/L (0-35); AST (SGOT) 22 U/L (14-36); Albumin 4.2 g/dl (3.5-5.0); Alkaline Phosphatase 108 U/L (38-126); Blood Urea Nitrogen 19 mg/dl (7-17); Calcium 9.4 mg/dl (8.4-10.2); Carbon Dioxide 24 mmol/L (22-30); Chloride 105 mmol/L (98-107); Glucose 150 mg/dl (70-99); Magnesium 1.9 mg/dl (1.6-2.3); Potassium 3.9 mmol/L (3.5-5.1); Sodium 138 mmol/L (135-145); Total Bilirubin 0.4 mg/dl (0.2-1.3); Total Protein 6.7 g/dl (6.3-8.2); eGFR > 60.00
--- NOTE | 2023-10-23 12:17 | PTCARENOTE ---
PT CAME IN FOR PERIPHERAL LABS STATES NOT FEELING WELL OVER THE PAST FEW DAYS TO A WEEK. C/O FATIGUE AND LOOSE STOOLS. DENIES SHORTNESS OF BREATH OR URINARY SYMPTOMS, NO SORE THROAT. VS: 99.6, 117, 125/90, HR WHEN STANDING 125. TT SIDE FRAMER AT [facility]
AND ORDERS OBTAINED TO GIVE 1 LITER OF IVF AND ADD MAGNESIUM LEVEL TO TODAY'S LABS. NEUTROPENIC PRECAUTIONS REVIEWED WITH PT WELL TO GO TO ER AFTER SHE RETURNS HOME IF TEMP REACHES 100 OR PERSISTS. WILL FOLLOW.
[2023-10-30 09:47] LABS: % Basophils 1.2 % (0-2); % Eosinophils 1.7 % (0-6); % Immature Granulocytes 6.1 % (0-0.5); % Lymphocytes 5.5 % (20.5-51.1); % Monocytes 12.3 % (1.7-9.3); % Neutrophils 73.2 % (42.2-75.2); Absolute Basophils 0.2 10^3/uL (0-0.2); Absolute Eosinophils 0.2 10^3/uL (0-0.7); Absolute Immature Granulocytes 0.8 10^3/uL (0-0.05); Absolute Lymphocytes 0.7 10^3/uL (1.2-3.4); Absolute Monocytes 1.6 10^3/uL (0.1-0.6); Absolute Neutrophils 9.7 10^3/uL (1.4-6.5); Hematocrit 37.6 % (37.0-47.0); Hemoglobin 12.4 g/dL (12.0-16.0); Mean Corpuscular Hgb 28.6 pg (27.0-31.0); Mean Corpuscular Volume 86.6 fL (81.0-99.0); Mean Platelet Volume 8.9 fL (7.4-10.4); Nucleated Red Blood Cells % 0 %; Platelet Count 417 10^3/uL (130-400); Red Blood Cell Count 4.34 10^6/uL (4.20-5.40); Red Cell Dist. Width 15.9 % (11.5-14.5); White Blood Cell Count 13.2 10^3/uL (4.8-10.8)
[2023-10-30 09:58] LABS: ALT (SGPT) 23 U/L (0-35); AST (SGOT) 32 U/L (14-36); Albumin 4.1 g/dl (3.5-5.0); Alkaline Phosphatase 80 U/L (38-126); Blood Urea Nitrogen 17 mg/dl (7-17); Calcium 9.5 mg/dl (8.4-10.2); Carbon Dioxide 21 mmol/L (22-30); Chloride 104 mmol/L (98-107); Glucose 147 mg/dl (70-99); Potassium 4.5 mmol/L (3.5-5.1); Sodium 135 mmol/L (135-145); Total Bilirubin 0.3 mg/dl (0.2-1.3); Total Protein 6.7 g/dl (6.3-8.2); eGFR > 60.00
--- NOTE | 2023-10-30 11:05 | W.PN.UPDATE ---
Update Note
- Progress Note Update
10/30/23 11:05
Patient in for labs today in OID with complaints of SOB on exertion, increasing fatigue, dry cough.. Last treatment given. With Adriamycin and Cytoxan. She then received Neulasta on 10/16. She reports a dry cough started 2 to 3 weeks ago. Of
note she has been taking prednisone since 09/04/2023 due to hepatic transaminitis which was believed to bili related to Keytruda. LFTs are now within normal limits. She started prednisone at 60 mg and is down to 5 mg. Her WBC today is 13.2 ANC
pending. While sitting in conversation patient with persistent dry cough. She also reports a '' discomfort around the chest wall radiating to the back however she does have a known breast lesion to the right breast which is improved since
initiating treatment and this has also caused a similar type pain in the past. She does report with any exertion she becomes short of breath. Reports in the last week she was taking Prilosec twice a day to see if it helped with cough but if
anything she does report me it making it worse. She has only been taking Prilosec 20 mg once a day for the last several days. No other symptoms noted. Discussed with oncology and stat CT chest ordered. Patient informed of this and advised to
call their office for help with scheduling. She does have my contact info and was advised to call for any additional questions or concerns or if she has trouble scheduling her CAT scan. We did discuss if symptoms worsen prior to CAT scan to go to
the emergency room. She verbalized understanding to all and thanked me for the call.
10/30/23 11:10
10/30/23 11:41
[2023-11-06 09:49] LABS: % Basophils 0.2 % (0-2); % Eosinophils 0.1 % (0-6); % Immature Granulocytes 0.7 % (0-0.5); % Lymphocytes 3.2 % (20.5-51.1); % Monocytes 7.4 % (1.7-9.3); % Neutrophils 88.4 % (42.2-75.2); Absolute Immature Granulocytes 0.1 10^3/uL (0-0.05); Absolute Lymphocytes 0.6 10^3/uL (1.2-3.4); Absolute Monocytes 1.3 10^3/uL (0.1-0.6); Absolute Neutrophils 15.9 10^3/uL (1.4-6.5); Hemoglobin 12.6 g/dL (12.0-16.0); Mean Corp Hgb Conc. 33.2 g/dL (33.0-37.0); Mean Corpuscular Hgb 28.9 pg (27.0-31.0); Mean Corpuscular Volume 87.2 fL (81.0-99.0); Mean Platelet Volume 8.7 fL (7.4-10.4); Platelet Count 495 10^3/uL (130-400); Red Blood Cell Count 4.36 10^6/uL (4.20-5.40); White Blood Cell Count 17.9 10^3/uL (4.8-10.8)
[2023-11-06 10:31] LABS: ALT (SGPT) 54 U/L (0-35); AST (SGOT) 45 U/L (14-36); Albumin 4.2 g/dl (3.5-5.0); Alkaline Phosphatase 72 U/L (38-126); Blood Urea Nitrogen 24 mg/dl (7-17); Carbon Dioxide 22 mmol/L (22-30); Chloride 107 mmol/L (98-107); Glucose 123 mg/dl (70-99); Potassium 4.4 mmol/L (3.5-5.1); Sodium 140 mmol/L (135-145); Total Bilirubin 0.3 mg/dl (0.2-1.3); Total Protein 6.7 g/dl (6.3-8.2); eGFR > 60.00
--- NOTE | 2023-11-06 15:25 | W.PN.UPDATE ---
Update Note
- Progress Note Update
11/06/23 15:25
Patient seen in OID after Dr Springer appt. Plans to start taxotere/cytoxan q3 weeks with neulasta support. Linda Razo notified and will ensure approved. To come in 11/10 to have patient education session completed. CT AP ordered to assess
abdominal 'pulling' sensation. She is feeling well overall and continues on prednisone for pneumonitis. Was given taper from [facility]. Feeling well with treatment plan. Expedited genetic testing appt 12/[address] Herzog 11/13 at 3pm. She
did query about barium knot picker cloth for CT as well as blood work and advised she can have bloods day of chemotherapy as well as knot picker cloth barium then I believe but to check with radiology. Linda will ensure referral received for CT AP from PCP as she has
an HMO. No further questions, but advised to call back with further questions or concerns. She thanked me for my time and has my contact info should she need to reach out.
[2023-11-13] VITALS (16 sets, daily range): BP systolic 118–147; BP diastolic 66–95
[2023-11-13] MEDS: CATHFLO/ACTIVASE 2 MG IV (09:44)
[2023-11-13 09:46] LABS: % Basophils 0.3 % (0-2); % Eosinophils 0.4 % (0-6); % Immature Granulocytes 1.2 % (0-0.5); % Lymphocytes 3.1 % (20.5-51.1); % Monocytes 9.5 % (1.7-9.3); % Neutrophils 85.5 % (42.2-75.2); Absolute Basophils 0.1 10^3/uL (0-0.2); Absolute Eosinophils 0.1 10^3/uL (0-0.7); Absolute Immature Granulocytes 0.2 10^3/uL (0-0.05); Absolute Lymphocytes 0.5 10^3/uL (1.2-3.4); Absolute Monocytes 1.5 10^3/uL (0.1-0.6); Absolute Neutrophils 13.8 10^3/uL (1.4-6.5); Hematocrit 39.9 % (37.0-47.0); Hemoglobin 12.9 g/dL (12.0-16.0); Mean Corp Hgb Conc. 32.3 g/dL (33.0-37.0); Mean Corpuscular Hgb 28.5 pg (27.0-31.0); Mean Corpuscular Volume 88.3 fL (81.0-99.0); Mean Platelet Volume 9.1 fL (7.4-10.4); Platelet Count 342 10^3/uL (130-400); Red Blood Cell Count 4.52 10^6/uL (4.20-5.40); Red Cell Dist. Width 16.3 % (11.5-14.5); White Blood Cell Count 16.2 10^3/uL (4.8-10.8)
--- NOTE | 2023-11-13 10:04 | PTCARENOTE ---
0944: pt with no blood return noted from left sc port despite multiple attempts; prn cath zak order noted on chart, dwelling at present, will follow.
[2023-11-13 10:35] LABS: ALT (SGPT) 64 U/L (0-35); AST (SGOT) 44 U/L (14-36); Albumin 4.2 g/dl (3.5-5.0); Alkaline Phosphatase 71 U/L (38-126); Blood Urea Nitrogen 20 mg/dl (7-17); Calcium 9.8 mg/dl (8.4-10.2); Carbon Dioxide 22 mmol/L (22-30); Chloride 105 mmol/L (98-107); Glucose 120 mg/dl (70-99); Potassium 4.2 mmol/L (3.5-5.1); Sodium 136 mmol/L (135-145); Total Bilirubin 0.4 mg/dl (0.2-1.3); Total Protein 6.7 g/dl (6.3-8.2); eGFR > 60.00
[2023-11-13] MEDS: EMEND 150 MG IV (11:33)
[2023-11-13] MEDS: ALOXI 5 MG IV (11:33)
[2023-11-13] MEDS: DECADRON 51 MG IV (12:09)
[2023-11-13] MEDS: TAXOTERE 262.800000000000011 MG IV (12:41)
[2023-11-13] MEDS: CYCLOPHOSPHAMIDE 255.129999999999995 MG IV (13:49)
[2023-11-14 14:15] VITALS: BP 100/85
[2023-11-14] MEDS: NYVEPRIA 6 MG SC (14:25)
== END 2023-11-16 23:59 | disposition home or self-care (01) ==
LOC: OID 14:09
PROVIDERS: ATTENDING PHYSICIAN Internal Medicine Hematology & Oncology; FAMILY PHYSICIAN Nurse Practitioner Adult Health
DX: C50.111 Malignant neoplasm of central portion of right female breast (principal); C50.211 Malignant neoplasm of upper-inner quadrant of right female breast; Z51.11 Encounter for antineoplastic chemotherapy; Z17.0 Estrogen receptor positive status [ER+]
CPT/HCPCS: 36415; 36591; 80053; 83735; 85025; 96360; 96367; 96372; 96374; 96375; 96409; 96413; 96417; J1453; J2469; J2997; J9073; J9171; Q5122

== ENCOUNTER 2023-12-11 13:31 | Outpatient (RCR) | payer OTHER, SELFPAY ==
[2023-11-21 11:10] LABS: % Basophils 0.2 % (0-2); % Eosinophils 0.2 % (0-6); % Immature Granulocytes 33.4 % (0-0.5); % Lymphocytes 2.7 % (20.5-51.1); % Monocytes 10.7 % (1.7-9.3); % Neutrophils 52.8 % (42.2-75.2); Absolute Basophils 0.1 10^3/uL (0-0.2); Absolute Eosinophils 0.1 10^3/uL (0-0.7); Absolute Immature Granulocytes 11.6 10^3/uL (0-0.05); Absolute Lymphocytes 0.9 10^3/uL (1.2-3.4); Absolute Monocytes 3.7 10^3/uL (0.1-0.6); Absolute Neutrophils 18.4 10^3/uL (1.4-6.5); Hematocrit 38.6 % (37.0-47.0); Hemoglobin 12.2 g/dL (12.0-16.0); Mean Corp Hgb Conc. 31.6 g/dL (33.0-37.0); Mean Corpuscular Hgb 28.1 pg (27.0-31.0); Mean Corpuscular Volume 88.9 fL (81.0-99.0); Mean Platelet Volume 10.4 fL (7.4-10.4); Nucleated Red Blood Cells % 0.5 %; Platelet Count 258 10^3/uL (130-400); Red Blood Cell Count 4.34 10^6/uL (4.20-5.40); Red Cell Dist. Width 16.3 % (11.5-14.5); White Blood Cell Count 34.8 10^3/uL (4.8-10.8)
[2023-11-21 11:18] LABS: ALT (SGPT) 79 U/L (0-35); AST (SGOT) 47 U/L (14-36); Albumin 4.2 g/dl (3.5-5.0); Alkaline Phosphatase 103 U/L (38-126); Blood Urea Nitrogen 19 mg/dl (7-17); Calcium 9.6 mg/dl (8.4-10.2); Carbon Dioxide 23 mmol/L (22-30); Chloride 104 mmol/L (98-107); Glucose 177 mg/dl (70-99); Potassium 3.8 mmol/L (3.5-5.1); Sodium 138 mmol/L (135-145); Total Bilirubin 0.3 mg/dl (0.2-1.3); Total Protein 6.4 g/dl (6.3-8.2); eGFR > 60.00
[2023-11-21 11:33] LABS: Absolute Neutrophils -Man Diff 23.6 10^3/uL (1.4-6.5); Band Neutrophils 10 % (0-3); Eosinophils 2 % (0-6); Lymphocytes 10 % (20-51); Metamyelocytes 6 % (-); Monocytes 11 % (2-9); Myelocytes 3 % (-); Segmented Neutrophils 58 % (42-75)
[2023-11-21 11:34] LABS: Normal RBC Morphology Yes; Platelets Checked Yes; Total Cells Counted 100
[2023-12-04] VITALS (11 sets, daily range): BP systolic 119–152; BP diastolic 71–96
[2023-12-04 08:44] LABS: % Basophils 0.3 % (0-2); % Eosinophils 0.8 % (0-6); % Immature Granulocytes 0.8 % (0-0.5); % Lymphocytes 9.4 % (20.5-51.1); % Monocytes 11.1 % (1.7-9.3); % Neutrophils 77.6 % (42.2-75.2); Absolute Eosinophils 0.1 10^3/uL (0-0.7); Absolute Immature Granulocytes 0.1 10^3/uL (0-0.05); Absolute Lymphocytes 1.1 10^3/uL (1.2-3.4); Absolute Monocytes 1.3 10^3/uL (0.1-0.6); Absolute Neutrophils 8.7 10^3/uL (1.4-6.5); Hematocrit 38.6 % (37.0-47.0); Hemoglobin 12.6 g/dL (12.0-16.0); Mean Corp Hgb Conc. 32.6 g/dL (33.0-37.0); Mean Corpuscular Hgb 28.9 pg (27.0-31.0); Mean Corpuscular Volume 88.5 fL (81.0-99.0); Platelet Count 297 10^3/uL (130-400); Red Blood Cell Count 4.36 10^6/uL (4.20-5.40); Red Cell Dist. Width 16.6 % (11.5-14.5); White Blood Cell Count 11.2 10^3/uL (4.8-10.8)
[2023-12-04 09:23] LABS: ALT (SGPT) 52 U/L (0-35); AST (SGOT) 40 U/L (14-36); Albumin 4.2 g/dl (3.5-5.0); Alkaline Phosphatase 75 U/L (38-126); Blood Urea Nitrogen 29 mg/dl (7-17); Calcium 9.6 mg/dl (8.4-10.2); Carbon Dioxide 25 mmol/L (22-30); Chloride 107 mmol/L (98-107); Glucose 131 mg/dl (70-99); Sodium 139 mmol/L (135-145); Total Bilirubin 0.4 mg/dl (0.2-1.3); Total Protein 6.5 g/dl (6.3-8.2); eGFR > 60.00
[2023-12-04] MEDS: EMEND 150 MG IV (10:29)
[2023-12-04] MEDS: DECADRON 51 MG IV (11:01)
[2023-12-04] MEDS: ALOXI 5 MG IV (11:01)
[2023-12-04] MEDS: TAXOTERE 262.8 MG IV (12:16)
[2023-12-04] MEDS: CYCLOPHOSPHAMIDE 255.13 MG IV (13:22)
[2023-12-05 13:50] VITALS: BP 135/86
[2023-12-05] MEDS: NYVEPRIA 6 MG SC (13:58)
[2023-12-11 15:58] LABS: Hematocrit 37.2 % (37.0-47.0); Hemoglobin 12.4 g/dL (12.0-16.0); Mean Corp Hgb Conc. 33.3 g/dL (33.0-37.0); Mean Corpuscular Hgb 29.5 pg (27.0-31.0); Mean Corpuscular Volume 88.6 fL (81.0-99.0); Mean Platelet Volume 10.5 fL (7.4-10.4); Platelet Count 256 10^3/uL (130-400); Red Cell Dist. Width 16.4 % (11.5-14.5)
[2023-12-11 16:03] LABS: Absolute Neutrophils -Man Diff 13.2 10^3/uL (1.4-6.5); Band Neutrophils 3 % (0-3); Eosinophils 1 % (0-6); Lymphocytes 8 % (20-51); Metamyelocytes 21 % (-); Monocytes 17 % (2-9); Normal RBC Morphology Yes; Platelets Checked Yes; Segmented Neutrophils 50 % (42-75); Total Cells Counted 100
== END 2023-12-17 23:59 | disposition home or self-care (01) ==
LOC: OID 13:31
PROVIDERS: ATTENDING PHYSICIAN Internal Medicine Hematology & Oncology; FAMILY PHYSICIAN Nurse Practitioner Adult Health; PRIMARYCARE PHYSICIAN Clinical Nurse Specialist Family Health
DX: C50.111 Malignant neoplasm of central portion of right female breast (principal); C50.211 Malignant neoplasm of upper-inner quadrant of right female breast; Z17.0 Estrogen receptor positive status [ER+]; Z51.11 Encounter for antineoplastic chemotherapy
CPT/HCPCS: 36415; 36591; 80053; 85025; 96367; 96372; 96375; 96413; 96417; J1453; J2469; J9073; J9171; Q5122

== ENCOUNTER → 2024-01-08 09:58 | Outpatient (REF) | payer OTHER, SELFPAY | LOC: REG 09:58 | PROVIDERS: ATTENDING PHYSICIAN Surgery Plastic and Reconstructive Surgery; FAMILY PHYSICIAN Nurse Practitioner Adult Health; REFERRING PHYSICIAN Surgery | DX: Z01.83 Encounter for blood typing (principal); C50.412 Malignant neoplasm of upper-outer quadrant of left female breast | CPT/HCPCS: 36415; 86850; 86900; 86901 ==

== ENCOUNTER → 2024-01-12 08:48 | Outpatient (REF) | payer OTHER, SELFPAY | LOC: WDC 08:48 | PROVIDERS: ATTENDING PHYSICIAN Surgery | DX: C50.411 Malignant neoplasm of upper-outer quadrant of right female breast (principal) | CPT/HCPCS: 38792; 76942; A9541 ==

== ENCOUNTER 2024-01-13 12:52 | Inpatient (IN) | payer OTHER, SELFPAY ==
--- NOTE | 2024-01-06 16:03 | PTCARENOTE ---
Naomi in Dr. Marcelino's office made aware of labs from 12/11/23 with WBC 25. Also made aware that per blood bank pt would need a T&S due to DPA blood fraction request.
[2024-01-13] VITALS (13 sets, daily range): BP systolic 0–142; BP diastolic 67–92; BMI 30.8
--- NOTE | 2024-01-13 13:25 | W.SUR.PREOP ---
Pre-Operative Surgical Note
-
I have examined this patient prior to the performance of the scheduled procedure.
The patient's condition is unchanged from the time of the current History and
Physical and the patient is able to undergo the scheduled procedure.
[2024-01-13] MEDS: TYLENOL 1000 MG PO (13:28)
[2024-01-13] MEDS: LOVENOX 40 MG SC (13:30)
--- NOTE | 2024-01-13 17:23 | W.IMMPOSTOP ---
Surgical Immed Post Op Note
-
Primary Surgeon: Mino
Assisting Surgeon: None
Pre-op Diagnosis: Right breast ca
Post-op Diagnosis: Same
Procedure Performed: Right mastectomy, sentinel lymph node mapping and biopsy
Anesthesia Type: GET
Specimen / Cultures: Right breast, sentinel nodes, additional axillary content
Estimated Blood Loss: 100cc
Complications: None
Operative Findings: Neg frozen section, clip in lymph node 7
Hindman Node Bx Breast Cancer
Hindman Node Bx Breast Cancer
Operation performed with curative intent: Yes
Tracer(s) to ID Hindman Nodes in Non-Neoadjuvant setting: N/A
Tracer(s) to ID Sentinal Nodes in the Neoadjuvant Setting: Dye and Radioactive Tracer
All nodes at end of dye-filled Lymphatic Channel removed: Yes
All Significantly Radioactive Nodes were removed: Yes
All Palpably Suspicious Nodes were Removed: Yes
Bx Proven Pos Nodes Marked Prior to Chemo ID'd & Removed: Yes
--- NOTE | 2024-01-13 20:12 | W.IMMPOSTOP ---
Surgical Immed Post Op Note
-
Primary Surgeon: JEAN-CLAUDE Marcelino MD
Assisting Surgeon:
Pre-op Diagnosis: right breast cancer
Post-op Diagnosis: same
Procedure Performed: right latissimus dorsi flap, right immediate breast reconstruction with tissue psychiatric mental health nurse
Anesthesia Type: General
Specimen / Cultures: Per Dr. Herzog
Estimated Blood Loss: 30 cc
Complications: none
Operative Findings: as expected
--- NOTE | 2024-01-13 20:13 | OR.RPT ---
Operative Report
Operative Report
date of surgery: 01/13/2024
Surgeon: JEAN-CLAUDE Marcelino MD
Preoperative diagnosis: Right breast cancer
Postoperative diagnosis: Same
Procedure:
1. Latissimus myocutaneous flap for right breast and chest wall reconstruction
2. Immediate reconstruction of the right breast with insertion of tissue optomechanical technician
anesthesia: General
Complications: None
Specimens: Per Dr. Herzog
EBL: 30 cc
Indications for procedure: Patient is a 63-year-old female who had a history of right breast cancer. She was referred by Dr. Herzog for conversation about reconstruction after planned mastectomy. Of note she underwent neoadjuvant chemotherapy for
a fungating mass of the right medial breast and chest wall. This subsequently involuted. Dr. Herzog plan to resect the involved skin as part of the cancer operation. As such a plan was made for chest wall reconstruction with a myocutaneous
latissimus flap and a tissue optomechanical technician will be placed for immediate breast reconstruction after mastectomy. Alternatives were discussed at length. Given the need for radiation anticipated soft tissue defect of the chest, a conversation was had
about potential wound breakdown, need for additional autologous tissue. Risk reviewed at length including reconstructive failure, flap failure, wound healing issues, asymmetry, scar, pain. She understood these risk desired to proceed.
Procedure in detail: Patient was identified in the preoperative area and the surgical site was confirmed to be the right breast and the latissimus. The anticipated defect of the medial chest wall and breast was marked out and the mastectomy would
be performed through this skin access. A myocutaneous latissimus flap was then marked out on the ipsilateral back with an elliptical skin island. All questions were answered consents were confirmed. Patient was taken back to the operating room
placed supine on the table. Anesthesia was induced the patient was prepped and draped in usual sterile fashion using ChloraPrep. A timeout for patient safety was performed was confirmed that bilateral SCDs were in place and preoperative
antibiotics were administered. Dr. Herzog began her portion of the procedure performing the right chest wall resection and mastectomy. Her operative report will be dictated separately. She was able to perform a sentinel lymph node biopsy through
the same access. At the completion of the mastectomy and sentinel lymph node, I entered the procedure and evaluated the chest wall defect. It was clear at this point that primary closure would not be obtained due to paucity of excess skin. As
such the plan commenced for latissimus muscle flap and tissue optomechanical technician. Meticulous hemostasis was ensured and Marcaine blocks were performed on the pectoralis muscle. Ioban was placed over the wound and the patient was switched to the lateral
decubitus position. The patient was then reprepped and draped using ChloraPrep. A latissimus flap portion of the procedure was then performed by first injecting 1% lidocaine with epinephrine in the proposed incisions. The lateral aspect of the
ellipse was then incised with a 15 blade and dissection was continued with our bevel using Bovie electrocautery. The latissimus muscle was then encountered and this was delineated along the posterior axillary line at the anatomical boundary of the
latissimus and the serratus. Dissection continued inferiorly to the posterior iliac spine. Wide undermining of the skin flaps was performed and then the relative tension was then evaluated as the opposite side of the ellipse was then marked. The
defect template was utilized to jo the ellipse. The width of the ellipse was kept under 8 cm. The medial aspect of the ellipse was then incised with a 15 blade and dissection was beveled out in the medial aspect of the latissimus muscle was then
delineated. This was done to the midline inferiorly and then inferior to the scapula. After adequate skin flaps have been raised. The muscle but was then raised from superior to inferior ensuring that serratus muscle stayed down. This was then
connected from inferior to superior taking the muscle off of the thoracolumbar fascia off of the midline and off of the serratus. A series of clips and Bovie electrocautery were used to maintain hemostasis at the perforating vessels. The
thoracodorsal artery and vein were isolated as was the branch to serratus. Dissection continued up and this was freed. The flap was then transposed through the subcutaneous tunnel and into the lateral chest wall to fill the defect. The relative
tension was evaluated to determine the need for denervation and disinsertion. As there is no tension, dissection concluded to prevent further morbidity. Marcaine blocks were then performed at the thoracolumbar fascia. A Brad drain was left in
the wound was closed in 3 layers using 0 PDS followed by INSORB stapler and a 3 oh monitor. This wound was then dressed with bacitracin dry gauze and Tegaderm and the patient was then returned to the supine position after covering the anterior
chest wound with additional Ioban. The patient was then prepped with Betadine solution and redraped in a sterile fashion. With the myocutaneous latissimus flap and the chest wall defect appropriate inset was then performed. This was done with the
inset of the latissimus muscle at the boundaries of the breast along the inframammary fold and medial chest wall. This was performed with 2-0 Vicryl's. Lateral boundary of the breast was then demarcated. A tissue optomechanical technician was measured to be
appropriately sized to 12 cm. It was filled to 150 cc. This was then inserted in the prepectoral space underneath the latissimus muscle. 2 oh silks were used to keep the optomechanical technician in place and then additional 2-0 Vicryl's were used to tie the
latissimus down over the optomechanical technician. 2 additional Brad drains were then tunneled and left in the right breast. The skin island was then inset into the surrounding mastectomy skin using a series of 3-0 Monocryl and 2 oh nylons. At the conclusion of
the case, the skin island showed no evidence of venous congestion and there was punctate bleeding indicative of adequate arterial flow. The wound was dressed with bacitracin and an ABD pad was placed along with a bra. Patient tolerated procedure
well was performed out complication. All counts were correct at the end the case. She was extubated taken the PACU for further care.
[2024-01-13] MEDS: DILAUDID 0.5 MG IV (21:09)
--- NOTE | 2024-01-13 21:41 | SUR.PHASEI ---
pacu addendum - vss, color good, minimal pain treated with dilaudid. scant drainage from back - echymosis below back dressings. updated, - pt very awake and alert, moves with minimal assistance, taking ice chips po and no nausea.
--- NOTE | 2024-01-13 22:00 | PTCARENOTE ---
PT AAX3, reports pain 10/26. see JUL re pain medication w/little eff. informed REGISTERED HEALTH NURSE given 1x extra dose of ultram. see jul. reevaluated pt alseep. pt reports numbness and tingling in hand. +radial pulse. [address] DTV. pt oriented to
room w/ call allen in reach.
[2024-01-13] MEDS: VALIUM 5 MG PO (22:08)
[2024-01-13] MEDS: NEURONTIN 100 MG PO (22:08)
[2024-01-13] MEDS: ULTRAM 50 MG PO (22:10)
[2024-01-13] MEDS: TYLENOL 650 MG PO (23:38)
[2024-01-14] MEDS: ULTRAM 25 MG PO (00:17)
[2024-01-14 00:30] VITALS: BP 105/72
[2024-01-14] MEDS: ANCEF 5 IV ×2 (02:58→10:26)
[2024-01-14 03:12] VITALS: BP 106/71
[2024-01-14] MEDS: ULTRAM 50 MG PO ×2 (05:04→11:50)
[2024-01-14] MEDS: TYLENOL 650 MG PO ×2 (05:04→11:51)
[2024-01-14 06:19] LABS: Hemoglobin 11.1 g/dL (12.0-16.0)
[2024-01-14 06:56] LABS: Blood Urea Nitrogen 17 mg/dl (7-17); Calcium 8.6 mg/dl (8.4-10.2); Carbon Dioxide 25 mmol/L (22-30); Chloride 103 mmol/L (98-107); Estimated Creatinine Clearance 92 ml/min; Glucose 152 mg/dl (70-99); Potassium 4.5 mmol/L (3.5-5.1); Sodium 136 mmol/L (135-145); eGFR > 60.00
[2024-01-14 07:35] VITALS: BP 118/68
[2024-01-14] MEDS: VALIUM 5 MG PO (08:06)
[2024-01-14] MEDS: COLACE 100 MG PO (08:06)
[2024-01-14] MEDS: NEURONTIN 100 MG PO (08:06)
--- NOTE | 2024-01-14 10:03 | CM ---
Addendum entered by Anette Keenan 01/14/24 10:11:
Family Physician: Olena Macdonald FEATURE WRITER; [address], [address], [place], [place];
Original Note:
Met with patient at bedside; initial assessment and CM consult completed
Pharmacy verified: [facility] @ [address] [place] [address] Sandhya Garza
Family Physician updated on chart:
Patient and live in [place] w/basement; enter via garage; 14 steps up to main floor; bathroom has tub w/shower
Patient reports she was independent with ambulation, stairs, and ADLs; drives; no working at this time
No DME
No history of SNF
will transport home
Agreeable to Home Health VN; [facility]
Plan: discharge to home when stable with Home Health services from [facility]
[2024-01-14] MEDS: FLUSH (NSS) 2 FLUSH IV (10:30)
--- NOTE | 2024-01-14 10:39 | W.PN.PLAS ---
Today's Communication
-
Follow-up on Friday
Progress Note
Subjective Data
Doing well
No increased work of breathing
Denies shortness of breath
Pain well-controlled
Objective Data
Vital Signs
Temp Pulse Resp BP Pulse Ox
98.1 F 78 16 118/68 94
01/14/24 07:35 01/14/24 07:35 01/14/24 07:35 01/14/24 07:35 01/14/24 07:35
Intake and Output
01/13/24 01/14/24 01/15/24
06:59 06:59 06:59
Intake Total 2440 / 2440
Output Total 50 / 50
Balance 2390 / 2390
Intake:
Oral fluids 1970 / 1970
IV fluids (Total) 470 / 470
normosol 150 / 150
Output:
Drain Output (Total) 50 / 50
Right Back A 40 / 40
Right Breast B 0 / 0
Right Breast C 10 / 10
Other:
Number of approximated LARGE 1
amounts of urine
Physical exam:
No acute distress
Increased work of breathing
Right muscle flap skin island warm and well-perfused in appearance, good cap refill, no evidence of venous congestion
Drain serosanguineous with appropriate output
No undrained fluid collections
No evidence of hematoma in the donor site of the back
Lab Results
01/14/24 06:04
01/14/24 06:05
Assessment / Plan
Status post right mastectomy and chest wall resection with immediate reconstruction with latissimus myocutaneous flap and tissue culinary manager.
Tolerating regular diet
Pain well-controlled on oral meds
Ambulate
Saunders out voided
Home today with visiting nurse
--- NOTE | 2024-01-14 10:41 | W.DCSUMMARY ---
Discharge Summary
Discharge Data
Date of Admission: 01/13/24
Date of Discharge: 01/14/24
-
Pending Results: No
Hospital Course
Patient was admitted following a right mastectomy and chest wall resection for breast cancer. She underwent immediate reconstruction with latissimus myocutaneous flap and tissue news clerk insertion. She followed a routine postoperative course. On
postoperative day 1 she was discharged with pain well-controlled, tolerating regular diet, ambulatory and voiding.
Visiting nurse was arranged
Close follow-up was arranged in office
Discharge Plan
-
Patient Disposition: Home (Routine Discharge)
Discharge Diagnosis/Procedures: Status post right mastectomy and immediate reconstruction with latissimus flap and tissue news clerk
Condition: Good
Diet: No restrictions
Activity: No strenuous activity
Additional Activity: No heavy lifting greater than 5 or 10 pounds, limit range of motion of right arm
Driving Restrictions: Not until seen by your Dr
Bathing Restrictions: OK to Shower
Other Services: VN
Wound Care: Strip and record drain output twice daily, compressive bra, remove dressings if they become wet or saturated
Referrals:
Olena Macdonald CRNP [Family Provider] -
Prescriptions:
New
cefadroxil 500 mg capsule
500 mg PO BID Qty: 42 0RF
acetaminophen 325 mg Tablet
650 mg PO Q6 14 Days Qty: 112 0RF
tramadol 50 mg Tablet
50 mg PO Q6HPRN PRN (Reason: pain) 14 Days Qty: 30 0RF
docusate sodium 100 mg Capsule
100 mg PO BID 14 Days Qty: 28 0RF
gabapentin 100 mg Capsule
100 mg PO TID 30 Days Qty: 90 2RF
diazepam 5 mg Tablet
5 mg PO TID 14 Days Qty: 42 0RF
Continued
prochlorperazine maleate [Compazine] 10 mg Tablet
10 mg PO PRN PRN (Reason: nausea)
loratadine [Claritin] 10 mg Tablet
10 mg PO DAILY
esomeprazole magnesium [Nexium] 20 mg Capsule,Delayed Release(Dr/Ec)
20 mg PO DAILY
prednisone 5 mg Tablet
5 mg PO DAILY
magnesium 200 mg Tablet
400 mg PO DAILY
Discharge Orders:
Discharge Patient (As Directed); Ordered 01/14/24
Ordered By: Javier Marcelino
Discharge Date and Time
Print Language: FRISIAN
--- NOTE | 2024-01-14 11:33 | VNURNOTE ---
Home health liaison met with patient to discuss [facility] services, visit scheduling/frequency, homebound status and pet policy. Patient understands home visits will be 1-2 times a week to assess and teach medical management, drain teaching. Patient
aware a visiting nurse will contact her for start of care within 1-2 days after discharge from . [facility] Referral completed in care port.
[2024-01-14 11:56] VITALS: BP 126/73
--- NOTE | 2024-01-14 13:35 | W.PN.UPDATE ---
Update Note
Progress Note Update
Pt is POD # 1 S/P right mastectomy, sentinel lymph node mapping and biopsy and immediate reconstruction with latissimus flap performed by Dr. Marcelino. She is sore but dressed and ready for discharge. Post op care and nutrition discussed. Will see
Chari in 2 days; my self in 2 weeks. Pathology pending. VNA in place.
== END 2024-01-14 14:10 | disposition home health service (06) | DRG 581 ==
LOC: 2 SOUTH 12:52
PROVIDERS: Surgery; ADMITTING PHYSICIAN Surgery Plastic and Reconstructive Surgery; FAMILY PHYSICIAN Nurse Practitioner Adult Health
PROC: 0HTT0ZZ Resection of Right Breast, Open Approach (ICD-10-PCS; 2024-01-13)
PROC: 0HHT0NZ Insertion of Tissue Expander into Right Breast, Open Approach (ICD-10-PCS; 2024-01-13)
PROC: 0KXF0Z5 Transfer Right Trunk Muscle, Latissimus Dorsi Myocutaneous Flap, Open Approach (ICD-10-PCS; 2024-01-13)
PROC: 4A1605H Monitoring of Lymphatic Flow using Indocyanine Green Dye, Open Approach (ICD-10-PCS; 2024-01-13)
PROC: 07B50ZX Excision of Right Axillary Lymphatic, Open Approach, Diagnostic (ICD-10-PCS; 2024-01-13)
DX: C50.411 Malignant neoplasm of upper-outer quadrant of right female breast (principal); Z17.1 Estrogen receptor negative status [ER-]; Z79.899 Other long term (current) drug therapy; Z79.52 Long term (current) use of systemic steroids; Z80.3 Family history of malignant neoplasm of breast
CPT/HCPCS: 88305; 88307; 88332; 76098; 80048; 85014; 85018; 86900; 86901; 88331; 88333; 88342; 88360; A4648; C1789

== ENCOUNTER 2024-02-13 13:20 | Outpatient (RCR) | payer OTHER, SELFPAY | END 2024-02-13 23:59 | disposition home or self-care (01) | LOC: RPT 13:20 | PROVIDERS: ATTENDING PHYSICIAN Internal Medicine Cardiovascular Disease; FAMILY PHYSICIAN Nurse Practitioner Adult Health | DX: D05.81 Other specified type of carcinoma in situ of right breast (principal); I97.2 Postmastectomy lymphedema syndrome; Z73.6 Limitation of activities due to disability; I97.89 Other postprocedural complications and disorders of the circulatory system, not elsewhere classified | CPT/HCPCS: 97163; 97535; 97760 ==

== ENCOUNTER 2024-02-24 09:59 | Outpatient (RCR) | payer OTHER, SELFPAY ==
[2024-02-24 10:09] VITALS: BP 138/79
[2024-02-24] MEDS: CATHFLO/ACTIVASE 2 MG IV (11:13)
[2024-02-24 11:38] LABS: % Basophils 0.7 % (0-2); % Eosinophils 2.2 % (0-6); % Immature Granulocytes 0.2 % (0-0.5); % Lymphocytes 16.2 % (20.5-51.1); % Monocytes 10.9 % (1.7-9.3); % Neutrophils 69.8 % (42.2-75.2); Absolute Eosinophils 0.1 10^3/uL (0-0.7); Absolute Monocytes 0.7 10^3/uL (0.1-0.6); Absolute Neutrophils 4.2 10^3/uL (1.4-6.5); Hematocrit 37.3 % (37.0-47.0); Hemoglobin 12.1 g/dL (12.0-16.0); Mean Corp Hgb Conc. 32.4 g/dL (33.0-37.0); Mean Corpuscular Volume 83.3 fL (81.0-99.0); Mean Platelet Volume 9.7 fL (7.4-10.4); Platelet Count 353 10^3/uL (130-400); Red Blood Cell Count 4.48 10^6/uL (4.20-5.40); Red Cell Dist. Width 14.4 % (11.5-14.5)
[2024-02-24 12:43] LABS: ALT (SGPT) 34 U/L (0-35); AST (SGOT) 36 U/L (14-36); Albumin 4.2 g/dl (3.5-5.0); Alkaline Phosphatase 68 U/L (38-126); Blood Urea Nitrogen 26 mg/dl (7-17); Calcium 9.4 mg/dl (8.4-10.2); Carbon Dioxide 26 mmol/L (22-30); Chloride 104 mmol/L (98-107); Glucose 124 mg/dl (70-99); Potassium 4.1 mmol/L (3.5-5.1); Sodium 142 mmol/L (135-145); Total Bilirubin 0.1 mg/dl (0.2-1.3); Total Protein 6.8 g/dl (6.3-8.2); eGFR > 60.00
== END 2024-03-18 23:59 | disposition home or self-care (01) ==
LOC: OID 09:59
PROVIDERS: ATTENDING PHYSICIAN Internal Medicine Hematology & Oncology; FAMILY PHYSICIAN Nurse Practitioner Adult Health; PRIMARYCARE PHYSICIAN Clinical Nurse Specialist Family Health
DX: C50.111 Malignant neoplasm of central portion of right female breast (principal); C50.211 Malignant neoplasm of upper-inner quadrant of right female breast; Z17.0 Estrogen receptor positive status [ER+]; Z51.11 Encounter for antineoplastic chemotherapy
CPT/HCPCS: 80053; 85025; 96374; 96523; J2997

== ENCOUNTER → 2024-03-16 06:24 | Day surgery (SDC) | payer OTHER, SELFPAY | LOC: GI 06:24 | PROVIDERS: ATTENDING PHYSICIAN Internal Medicine | DX: R10.13 Epigastric pain (principal); K29.50 Unspecified chronic gastritis without bleeding | CPT/HCPCS: 43239; 88305; 88342 ==

== ENCOUNTER 2024-03-18 08:52 | Outpatient (RCR) | payer OTHER, SELFPAY | END 2024-03-18 23:59 | disposition home or self-care (01) | LOC: RPT 08:52 | PROVIDERS: ATTENDING PHYSICIAN Internal Medicine Cardiovascular Disease; FAMILY PHYSICIAN Nurse Practitioner Adult Health | DX: I97.2 Postmastectomy lymphedema syndrome (principal); D05.81 Other specified type of carcinoma in situ of right breast; Z73.6 Limitation of activities due to disability; G62.9 Polyneuropathy, unspecified; R39.15 Urgency of urination; I97.89 Other postprocedural complications and disorders of the circulatory system, not elsewhere classified; Z90.11 Acquired absence of right breast and nipple | CPT/HCPCS: 97110; 97112; 97140; 97530; 97535 ==

== ENCOUNTER 2024-04-06 08:23 | Outpatient (RCR) | payer OTHER, SELFPAY ==
[2024-04-06 08:30] VITALS: BP 162/94
== END 2024-04-07 09:17 | disposition home or self-care (01) ==
LOC: OID 08:23
PROVIDERS: ATTENDING PHYSICIAN Internal Medicine Hematology & Oncology; FAMILY PHYSICIAN Nurse Practitioner Adult Health; PRIMARYCARE PHYSICIAN Clinical Nurse Specialist Family Health
DX: C50.111 Malignant neoplasm of central portion of right female breast (principal); C50.211 Malignant neoplasm of upper-inner quadrant of right female breast; Z17.0 Estrogen receptor positive status [ER+]; Z51.11 Encounter for antineoplastic chemotherapy
CPT/HCPCS: 96523

== ENCOUNTER 2024-04-16 13:02 | Outpatient (RCR) | payer OTHER, SELFPAY | END 2024-04-16 23:59 | disposition home or self-care (01) | LOC: RPT 13:02 | PROVIDERS: ATTENDING PHYSICIAN Internal Medicine Cardiovascular Disease; FAMILY PHYSICIAN Nurse Practitioner Adult Health | DX: I97.2 Postmastectomy lymphedema syndrome (principal); D05.81 Other specified type of carcinoma in situ of right breast; Z73.6 Limitation of activities due to disability; G62.9 Polyneuropathy, unspecified; I97.89 Other postprocedural complications and disorders of the circulatory system, not elsewhere classified | CPT/HCPCS: 97110; 97112; 97140 ==

== ENCOUNTER → 2024-04-22 08:15 | Outpatient (REF) | payer OTHER, SELFPAY | LOC: RAD 08:15 | PROVIDERS: ATTENDING PHYSICIAN Nurse Practitioner; FAMILY PHYSICIAN Nurse Practitioner Adult Health; REFERRING PHYSICIAN Internal Medicine | DX: R10.13 Epigastric pain (principal); R79.89 Other specified abnormal findings of blood chemistry | CPT/HCPCS: 76700 ==

== ENCOUNTER → 2024-04-27 08:02 | Outpatient (REF) | payer OTHER, SELFPAY | LOC: RAD 08:02 | PROVIDERS: ATTENDING PHYSICIAN Internal Medicine Hematology & Oncology; FAMILY PHYSICIAN Nurse Practitioner Adult Health | DX: C50.111 Malignant neoplasm of central portion of right female breast (principal); C50.211 Malignant neoplasm of upper-inner quadrant of right female breast; R14.0 Abdominal distension (gaseous); R10.84 Generalized abdominal pain | CPT/HCPCS: 77080 ==

== ENCOUNTER 2024-05-14 14:01 | Outpatient (RCR) | payer OTHER, SELFPAY | END 2024-05-14 23:59 | disposition home or self-care (01) | LOC: RPT 14:01 | PROVIDERS: ATTENDING PHYSICIAN Internal Medicine Cardiovascular Disease; FAMILY PHYSICIAN Nurse Practitioner Adult Health | DX: I97.2 Postmastectomy lymphedema syndrome (principal); D05.81 Other specified type of carcinoma in situ of right breast; Z73.6 Limitation of activities due to disability; G62.9 Polyneuropathy, unspecified; I97.89 Other postprocedural complications and disorders of the circulatory system, not elsewhere classified; Z90.11 Acquired absence of right breast and nipple | CPT/HCPCS: 97110; 97112; 97140 ==

== ENCOUNTER 2024-05-18 09:11 | Outpatient (RCR) | payer OTHER, SELFPAY ==
[2024-05-18 09:20] VITALS: BP 137/95
[2024-05-18 10:18] LABS: % Basophils 0.8 % (0-2); % Immature Granulocytes 0.3 % (0-0.5); % Lymphocytes 12.3 % (20.5-51.1); % Monocytes 11.6 % (1.7-9.3); Absolute Lymphocytes 0.5 10^3/uL (1.2-3.4); Absolute Monocytes 0.5 10^3/uL (0.1-0.6); Hematocrit 39.9 % (37.0-47.0); Hemoglobin 13.4 g/dL (12.0-16.0); Mean Corp Hgb Conc. 33.6 g/dL (33.0-37.0); Mean Corpuscular Hgb 26.4 pg (27.0-31.0); Mean Corpuscular Volume 78.5 fL (81.0-99.0); Mean Platelet Volume 9.9 fL (7.4-10.4); Nucleated Red Blood Cells % 0 %; Platelet Count 283 10^3/uL (130-400); Red Blood Cell Count 5.08 10^6/uL (4.20-5.40)
[2024-05-18 10:57] LABS: ALT (SGPT) 21 U/L (0-35); AST (SGOT) 27 U/L (14-36); Albumin 4.6 g/dl (3.5-5.0); Alkaline Phosphatase 62 U/L (38-126); Blood Urea Nitrogen 22 mg/dl (7-17); Calcium 9.7 mg/dl (8.4-10.2); Carbon Dioxide 21 mmol/L (22-30); Chloride 106 mmol/L (98-107); Glucose 104 mg/dl (70-99); Potassium 4.2 mmol/L (3.5-5.1); Sodium 139 mmol/L (135-145); Total Bilirubin 0.4 mg/dl (0.2-1.3); Total Protein 7.4 g/dl (6.3-8.2); eGFR > 60.00
== END 2024-05-18 23:59 | disposition home or self-care (01) ==
LOC: OID 09:11
PROVIDERS: ATTENDING PHYSICIAN Internal Medicine Hematology & Oncology; FAMILY PHYSICIAN Nurse Practitioner Adult Health; PRIMARYCARE PHYSICIAN Clinical Nurse Specialist Family Health
DX: C50.111 Malignant neoplasm of central portion of right female breast (principal); C50.211 Malignant neoplasm of upper-inner quadrant of right female breast; Z17.0 Estrogen receptor positive status [ER+]; Z51.11 Encounter for antineoplastic chemotherapy
CPT/HCPCS: 80053; 85025; 96523

== ENCOUNTER → 2024-05-27 15:23 | Outpatient (REF) | payer OTHER, SELFPAY | LOC: RAD 15:23 | PROVIDERS: ATTENDING PHYSICIAN Internal Medicine Hematology & Oncology; FAMILY PHYSICIAN Nurse Practitioner Adult Health | DX: C50.111 Malignant neoplasm of central portion of right female breast (principal); C50.211 Malignant neoplasm of upper-inner quadrant of right female breast; R14.0 Abdominal distension (gaseous); R10.84 Generalized abdominal pain | CPT/HCPCS: 71260; Q9967 ==

== ENCOUNTER 2024-06-15 11:13 | Outpatient (RCR) | payer OTHER, SELFPAY ==
[2024-06-15 11:34] LABS: % Basophils 0.9 % (0-2); % Eosinophils 2.3 % (0-6); % Immature Granulocytes 0.3 % (0-0.5); % Lymphocytes 20.2 % (20.5-51.1); % Monocytes 5.2 % (1.7-9.3); % Neutrophils 71.1 % (42.2-75.2); Absolute Eosinophils 0.1 10^3/uL (0-0.7); Absolute Lymphocytes 0.7 10^3/uL (1.2-3.4); Absolute Monocytes 0.2 10^3/uL (0.1-0.6); Absolute Neutrophils 2.5 10^3/uL (1.4-6.5); Hematocrit 39.4 % (37.0-47.0); Hemoglobin 13.2 g/dL (12.0-16.0); Mean Corp Hgb Conc. 33.5 g/dL (33.0-37.0); Mean Corpuscular Hgb 26.8 pg (27.0-31.0); Mean Corpuscular Volume 80.1 fL (81.0-99.0); Mean Platelet Volume 9.2 fL (7.4-10.4); Platelet Count 189 10^3/uL (130-400); Red Blood Cell Count 4.92 10^6/uL (4.20-5.40); Red Cell Dist. Width 18.3 % (11.5-14.5); White Blood Cell Count 3.5 10^3/uL (4.8-10.8)
[2024-06-15 14:18] LABS: ALT (SGPT) 19 U/L (0-35); AST (SGOT) 23 U/L (14-36); Albumin 4.3 g/dl (3.5-5.0); Alkaline Phosphatase 87 U/L (38-126); Blood Urea Nitrogen 23 mg/dl (7-17); Calcium 9.7 mg/dl (8.4-10.2); Carbon Dioxide 23 mmol/L (22-30); Chloride 105 mmol/L (98-107); Glucose 132 mg/dl (70-99); Sodium 137 mmol/L (135-145); Total Bilirubin 0.3 mg/dl (0.2-1.3); eGFR > 60.00
== END 2024-06-18 23:59 | disposition home or self-care (01) ==
LOC: OID 11:13
PROVIDERS: ATTENDING PHYSICIAN Internal Medicine Hematology & Oncology; FAMILY PHYSICIAN Nurse Practitioner Adult Health; PRIMARYCARE PHYSICIAN Clinical Nurse Specialist Family Health
DX: C50.111 Malignant neoplasm of central portion of right female breast (principal); C50.211 Malignant neoplasm of upper-inner quadrant of right female breast; Z17.0 Estrogen receptor positive status [ER+]; Z51.11 Encounter for antineoplastic chemotherapy
CPT/HCPCS: 36415; 80053; 85025

== ENCOUNTER 2024-06-17 14:47 | Outpatient (RCR) | payer OTHER, SELFPAY | END 2024-06-17 23:59 | disposition home or self-care (01) | LOC: RPT 14:47 | PROVIDERS: ATTENDING PHYSICIAN Internal Medicine Cardiovascular Disease; FAMILY PHYSICIAN Nurse Practitioner Adult Health | DX: I97.2 Postmastectomy lymphedema syndrome (principal); D05.81 Other specified type of carcinoma in situ of right breast; Z73.6 Limitation of activities due to disability; G62.9 Polyneuropathy, unspecified; I97.89 Other postprocedural complications and disorders of the circulatory system, not elsewhere classified; Z90.11 Acquired absence of right breast and nipple | CPT/HCPCS: 97110; 97112; 97140; 97530 ==

== ENCOUNTER 2024-06-28 12:59 | Outpatient (RCR) | payer OTHER, SELFPAY ==
[2024-06-28 13:15] VITALS: BP 124/81
== END 2024-06-29 08:59 | disposition home or self-care (01) ==
LOC: OID 12:59
PROVIDERS: ATTENDING PHYSICIAN Internal Medicine Hematology & Oncology; FAMILY PHYSICIAN Nurse Practitioner Adult Health; PRIMARYCARE PHYSICIAN Clinical Nurse Specialist Family Health
DX: C50.111 Malignant neoplasm of central portion of right female breast (principal); C50.211 Malignant neoplasm of upper-inner quadrant of right female breast; Z17.0 Estrogen receptor positive status [ER+]; Z51.11 Encounter for antineoplastic chemotherapy
CPT/HCPCS: 96523

== ENCOUNTER → 2024-07-10 10:06 | Outpatient (REF) | payer OTHER, SELFPAY | LOC: RCS 10:06 | PROVIDERS: ATTENDING PHYSICIAN Internal Medicine Cardiovascular Disease; FAMILY PHYSICIAN Nurse Practitioner Adult Health | DX: R06.02 Shortness of breath (principal); R60.9 Edema, unspecified; T45.1X5D Adverse effect of antineoplastic and immunosuppressive drugs, subsequent encounter | CPT/HCPCS: 93306; 93356 ==

== ENCOUNTER → 2024-07-12 10:03 | Outpatient (REF) | payer OTHER, SELFPAY ==
[2024-07-12 10:47] LABS: % Basophils 1.6 % (0-2); % Immature Granulocytes 0.3 % (0-0.5); % Lymphocytes 24.8 % (20.5-51.1); % Monocytes 7.1 % (1.7-9.3); % Neutrophils 65.2 % (42.2-75.2); Absolute Basophils 0.1 10^3/uL (0-0.2); Absolute Lymphocytes 0.8 10^3/uL (1.2-3.4); Absolute Monocytes 0.2 10^3/uL (0.1-0.6); Mean Corp Hgb Conc. 34.2 g/dL (33.0-37.0); Mean Corpuscular Hgb 28.4 pg (27.0-31.0); Mean Corpuscular Volume 83.2 fL (81.0-99.0); Mean Platelet Volume 8.4 fL (7.4-10.4); Platelet Count 236 10^3/uL (130-400); Red Blood Cell Count 4.57 10^6/uL (4.20-5.40); Red Cell Dist. Width 19.6 % (11.5-14.5); White Blood Cell Count 3.1 10^3/uL (4.8-10.8)
[2024-07-12 12:04] LABS: ALT (SGPT) 19 U/L (0-35); AST (SGOT) 25 U/L (14-36); Albumin 4.9 g/dl (3.5-5.0); Alkaline Phosphatase 83 U/L (38-126); Blood Urea Nitrogen 25 mg/dl (7-17); Calcium 9.9 mg/dl (8.4-10.2); Carbon Dioxide 20 mmol/L (22-30); Chloride 105 mmol/L (98-107); Glucose 104 mg/dl (70-99); Potassium 4.1 mmol/L (3.5-5.1); Sodium 137 mmol/L (135-145); Total Bilirubin 0.8 mg/dl (0.2-1.3); Total Cholesterol 213 mg/dl (50-199); Total Protein 7.6 g/dl (6.3-8.2); Triglyceride 95 mg/dl (10-149); Very Low Density Lipoprotein 19 mg/dl (0-30); eGFR > 60.00
[2024-07-12 12:25] LABS: HDL Cholesterol 146 mg/dl; LDL Cholesterol, Calculated 48 mg/dl
[2024-07-12 12:31] LABS: TSH Reflex To Free T4 0.65 uIU/ml (0.47-4.68)
== END ==
LOC: OIDL 10:03
PROVIDERS: ATTENDING PHYSICIAN Internal Medicine Hematology & Oncology; FAMILY PHYSICIAN Nurse Practitioner Adult Health
DX: C50.111 Malignant neoplasm of central portion of right female breast (principal); C50.211 Malignant neoplasm of upper-inner quadrant of right female breast; Z17.0 Estrogen receptor positive status [ER+]; Z51.11 Encounter for antineoplastic chemotherapy
CPT/HCPCS: 36415; 80053; 80061; 84443; 85025

== ENCOUNTER 2024-07-13 09:59 | Outpatient (RCR) | payer OTHER, SELFPAY | END 2024-07-13 23:59 | disposition home or self-care (01) | LOC: RPT 09:59 | PROVIDERS: ATTENDING PHYSICIAN Internal Medicine Cardiovascular Disease; FAMILY PHYSICIAN Nurse Practitioner Adult Health | DX: I97.2 Postmastectomy lymphedema syndrome (principal); D05.81 Other specified type of carcinoma in situ of right breast; Z73.6 Limitation of activities due to disability; I97.89 Other postprocedural complications and disorders of the circulatory system, not elsewhere classified; Z90.11 Acquired absence of right breast and nipple; G62.9 Polyneuropathy, unspecified | CPT/HCPCS: 97110; 97112; 97140; 97530 ==

== ENCOUNTER 2024-08-02 11:06 | Outpatient (RCR) | payer OTHER, SELFPAY | END 2024-08-02 23:59 | disposition home or self-care (01) | LOC: RPT 11:06 | PROVIDERS: ATTENDING PHYSICIAN Internal Medicine Cardiovascular Disease; FAMILY PHYSICIAN Nurse Practitioner Adult Health | DX: I97.2 Postmastectomy lymphedema syndrome (principal); D05.81 Other specified type of carcinoma in situ of right breast; Z73.6 Limitation of activities due to disability; I97.89 Other postprocedural complications and disorders of the circulatory system, not elsewhere classified; G62.9 Polyneuropathy, unspecified; Z90.11 Acquired absence of right breast and nipple | CPT/HCPCS: 97110; 97112; 97530 ==

== ENCOUNTER 2024-08-16 11:00 | Outpatient (RCR) | payer OTHER, SELFPAY ==
[2024-07-26 10:44] LABS: % Lymphocytes 22.9 % (20.5-51.1); % Monocytes 7.7 % (1.7-9.3); % Neutrophils 67.4 % (42.2-75.2); Absolute Lymphocytes 0.7 10^3/uL (1.2-3.4); Absolute Monocytes 0.2 10^3/uL (0.1-0.6); Absolute Neutrophils 2.1 10^3/uL (1.4-6.5); Hematocrit 37.8 % (37.0-47.0); Hemoglobin 12.9 g/dL (12.0-16.0); Mean Corp Hgb Conc. 34.1 g/dL (33.0-37.0); Mean Corpuscular Hgb 29.2 pg (27.0-31.0); Mean Corpuscular Volume 85.5 fL (81.0-99.0); Mean Platelet Volume 8.5 fL (7.4-10.4); Platelet Count 233 10^3/uL (130-400); Red Blood Cell Count 4.42 10^6/uL (4.20-5.40); Red Cell Dist. Width 19.6 % (11.5-14.5); White Blood Cell Count 3.1 10^3/uL (4.8-10.8)
[2024-07-26 11:43] LABS: ALT (SGPT) 19 U/L (0-35); AST (SGOT) 23 U/L (14-36); Albumin 4.9 g/dl (3.5-5.0); Alkaline Phosphatase 74 U/L (38-126); Blood Urea Nitrogen 25 mg/dl (7-17); Calcium 10.2 mg/dl (8.4-10.2); Carbon Dioxide 24 mmol/L (22-30); Chloride 104 mmol/L (98-107); Glucose 110 mg/dl (70-99); Potassium 4.6 mmol/L (3.5-5.1); Sodium 137 mmol/L (135-145); Total Bilirubin 0.8 mg/dl (0.2-1.3); Total Protein 7.5 g/dl (6.3-8.2); eGFR > 60.00
[2024-08-09 10:12] LABS: % Basophils 1.6 % (0-2); % Eosinophils 1.3 % (0-6); % Monocytes 8.1 % (1.7-9.3); Absolute Basophils 0.1 10^3/uL (0-0.2); Absolute Lymphocytes 0.8 10^3/uL (1.2-3.4); Absolute Monocytes 0.3 10^3/uL (0.1-0.6); Absolute Neutrophils 1.9 10^3/uL (1.4-6.5); Hemoglobin 13.1 g/dL (12.0-16.0); Mean Corp Hgb Conc. 34.5 g/dL (33.0-37.0); Mean Corpuscular Hgb 30.4 pg (27.0-31.0); Mean Corpuscular Volume 88.2 fL (81.0-99.0); Mean Platelet Volume 9.3 fL (7.4-10.4); Platelet Count 237 10^3/uL (130-400); Red Blood Cell Count 4.31 10^6/uL (4.20-5.40); Red Cell Dist. Width 19.7 % (11.5-14.5); White Blood Cell Count 3.1 10^3/uL (4.8-10.8)
[2024-08-09 11:06] LABS: ALT (SGPT) 20 U/L (0-35); AST (SGOT) 23 U/L (14-36); Albumin 4.5 g/dl (3.5-5.0); Alkaline Phosphatase 72 U/L (38-126); Blood Urea Nitrogen 26 mg/dl (7-17); Calcium 9.9 mg/dl (8.4-10.2); Carbon Dioxide 25 mmol/L (22-30); Glucose 126 mg/dl (70-99); Potassium 4.1 mmol/L (3.5-5.1); Sodium 138 mmol/L (135-145); Total Bilirubin 0.5 mg/dl (0.2-1.3); Total Protein 7.4 g/dl (6.3-8.2); eGFR > 60.00
[2024-08-09 11:58] LABS: Chloride 106 mmol/L (98-107)
== END 2024-08-16 23:59 | disposition home or self-care (01) ==
LOC: OID 11:00
PROVIDERS: ATTENDING PHYSICIAN Internal Medicine Hematology & Oncology
DX: C50.111 Malignant neoplasm of central portion of right female breast (principal); R14.0 Abdominal distension (gaseous); R10.84 Generalized abdominal pain; Z17.0 Estrogen receptor positive status [ER+]
CPT/HCPCS: 36415; 80053; 85025

== ENCOUNTER 2024-08-23 09:09 | Outpatient (RCR) | payer OTHER, SELFPAY ==
[2024-08-23 09:15] VITALS: BP 128/86
[2024-08-23 10:01] LABS: % Basophils 2.5 % (0-2); % Eosinophils 2.2 % (0-6); % Immature Granulocytes 0.3 % (0-0.5); % Lymphocytes 23.5 % (20.5-51.1); % Monocytes 8.6 % (1.7-9.3); % Neutrophils 62.9 % (42.2-75.2); Absolute Basophils 0.1 10^3/uL (0-0.2); Absolute Eosinophils 0.1 10^3/uL (0-0.7); Absolute Lymphocytes 0.8 10^3/uL (1.2-3.4); Absolute Monocytes 0.3 10^3/uL (0.1-0.6); Hematocrit 35.6 % (37.0-47.0); Hemoglobin 12.4 g/dL (12.0-16.0); Mean Corp Hgb Conc. 34.8 g/dL (33.0-37.0); Mean Corpuscular Hgb 31.2 pg (27.0-31.0); Mean Corpuscular Volume 89.4 fL (81.0-99.0); Mean Platelet Volume 9.3 fL (7.4-10.4); Nucleated Red Blood Cells % 0 %; Platelet Count 216 10^3/uL (130-400); Red Blood Cell Count 3.98 10^6/uL (4.20-5.40); Red Cell Dist. Width 19.7 % (11.5-14.5); White Blood Cell Count 3.2 10^3/uL (4.8-10.8)
[2024-08-23 10:11] LABS: ALT (SGPT) 19 U/L (0-35); AST (SGOT) 23 U/L (14-36); Albumin 4.3 g/dl (3.5-5.0); Alkaline Phosphatase 64 U/L (38-126); Blood Urea Nitrogen 26 mg/dl (7-17); Carbon Dioxide 24 mmol/L (22-30); Chloride 109 mmol/L (98-107); Glucose 118 mg/dl (70-99); Sodium 142 mmol/L (135-145); Total Bilirubin 0.6 mg/dl (0.2-1.3); Total Protein 7.1 g/dl (6.3-8.2); eGFR > 60.00
== END 2024-08-24 09:17 | disposition home or self-care (01) ==
LOC: OID 09:09
PROVIDERS: ATTENDING PHYSICIAN Internal Medicine Hematology & Oncology; FAMILY PHYSICIAN Nurse Practitioner Adult Health
DX: C50.111 Malignant neoplasm of central portion of right female breast (principal); R14.0 Abdominal distension (gaseous); R10.84 Generalized abdominal pain; Z17.0 Estrogen receptor positive status [ER+]
CPT/HCPCS: 80053; 85025; 96523

== ENCOUNTER 2024-08-30 11:05 | Outpatient (RCR) | payer OTHER, SELFPAY | END 2024-08-30 14:40 | disposition home or self-care (01) | LOC: RPT 11:05 | PROVIDERS: ATTENDING PHYSICIAN Internal Medicine Cardiovascular Disease; FAMILY PHYSICIAN Nurse Practitioner Adult Health | DX: I97.2 Postmastectomy lymphedema syndrome (principal); D05.81 Other specified type of carcinoma in situ of right breast; Z73.6 Limitation of activities due to disability; I97.89 Other postprocedural complications and disorders of the circulatory system, not elsewhere classified; Z90.11 Acquired absence of right breast and nipple; G62.9 Polyneuropathy, unspecified | CPT/HCPCS: 97112; 97530 ==

== ENCOUNTER 2024-09-09 09:12 | Outpatient (RCR) | payer OTHER, SELFPAY ==
[2024-09-09 09:35] LABS: % Basophils 1.4 % (0-2); % Lymphocytes 22.7 % (20.5-51.1); % Monocytes 8.6 % (1.7-9.3); % Neutrophils 65.3 % (42.2-75.2); Absolute Basophils 0.1 10^3/uL (0-0.2); Absolute Eosinophils 0.1 10^3/uL (0-0.7); Absolute Lymphocytes 0.8 10^3/uL (1.2-3.4); Absolute Monocytes 0.3 10^3/uL (0.1-0.6); Absolute Neutrophils 2.3 10^3/uL (1.4-6.5); Hematocrit 37.3 % (37.0-47.0); Mean Corp Hgb Conc. 34.9 g/dL (33.0-37.0); Mean Corpuscular Hgb 31.9 pg (27.0-31.0); Mean Corpuscular Volume 91.4 fL (81.0-99.0); Platelet Count 224 10^3/uL (130-400); Red Blood Cell Count 4.08 10^6/uL (4.20-5.40); Red Cell Dist. Width 18.6 % (11.5-14.5); White Blood Cell Count 3.5 10^3/uL (4.8-10.8)
[2024-09-09 10:23] LABS: ALT (SGPT) 19 U/L (0-35); AST (SGOT) 24 U/L (14-36); Alkaline Phosphatase 70 U/L (38-126); Blood Urea Nitrogen 24 mg/dl (7-17); Carbon Dioxide 22 mmol/L (22-30); Chloride 108 mmol/L (98-107); Direct Bilirubin 0.2 mg/dl (0.0-0.4); Glucose 139 mg/dl (70-99); Potassium 4.2 mmol/L (3.5-5.1); Sodium 142 mmol/L (135-145); Total Bilirubin 0.7 mg/dl (0.2-1.3); Total Protein 7.6 g/dl (6.3-8.2); eGFR > 60.00
[2024-09-11 04:32] LABS: CA 27-29 50.2 U/mL (<=39.0)
== END 2024-09-15 23:59 | disposition home or self-care (01) ==
LOC: OID 09:12
PROVIDERS: ATTENDING PHYSICIAN Internal Medicine Hematology & Oncology; FAMILY PHYSICIAN Nurse Practitioner Adult Health
DX: C50.111 Malignant neoplasm of central portion of right female breast (principal); R14.0 Abdominal distension (gaseous); R10.84 Generalized abdominal pain; Z17.0 Estrogen receptor positive status [ER+]
CPT/HCPCS: 36415; 80053; 82248; 85025; 86300

== ENCOUNTER → 2024-10-07 15:17 | Outpatient (REF) | payer OTHER, SELFPAY | LOC: WDC 15:17 | PROVIDERS: ATTENDING PHYSICIAN Nurse Practitioner Adult Health; FAMILY PHYSICIAN Nurse Practitioner Adult Health | DX: Z12.31 Encounter for screening mammogram for malignant neoplasm of breast (principal); C50.111 Malignant neoplasm of central portion of right female breast | CPT/HCPCS: 77063; 77067 ==

== ENCOUNTER → 2024-11-01 09:15 | Outpatient (REF) | payer OTHER, SELFPAY ==
[2024-11-01 09:45] LABS: % Basophils 1.1 % (0-2); % Eosinophils 2.2 % (0-6); % Lymphocytes 25.1 % (20.5-51.1); % Monocytes 8.2 % (1.7-9.3); % Neutrophils 63.4 % (42.2-75.2); Absolute Eosinophils 0.1 10^3/uL (0-0.7); Absolute Lymphocytes 0.7 10^3/uL (1.2-3.4); Absolute Monocytes 0.2 10^3/uL (0.1-0.6); Absolute Neutrophils 1.8 10^3/uL (1.4-6.5); Hematocrit 36.1 % (37.0-47.0); Hemoglobin 12.7 g/dL (12.0-16.0); Mean Corp Hgb Conc. 35.2 g/dL (33.0-37.0); Mean Corpuscular Hgb 34.7 pg (27.0-31.0); Mean Corpuscular Volume 98.6 fL (81.0-99.0); Mean Platelet Volume 9.6 fL (7.4-10.4); Platelet Count 211 10^3/uL (130-400); Red Blood Cell Count 3.66 10^6/uL (4.20-5.40); Red Cell Dist. Width 14.6 % (11.5-14.5); White Blood Cell Count 2.8 10^3/uL (4.8-10.8)
[2024-11-01 10:24] LABS: ALT (SGPT) 15 U/L (0-35); AST (SGOT) 20 U/L (14-36); Albumin 4.6 g/dl (3.5-5.0); Alkaline Phosphatase 57 U/L (38-126); Blood Urea Nitrogen 22 mg/dl (7-17); Calcium 9.9 mg/dl (8.4-10.2); Carbon Dioxide 24 mmol/L (22-30); Chloride 109 mmol/L (98-107); Glucose 104 mg/dl (70-99); Potassium 4.5 mmol/L (3.5-5.1); Sodium 140 mmol/L (135-145); Total Bilirubin 0.5 mg/dl (0.2-1.3); Total Protein 7.4 g/dl (6.3-8.2); eGFR > 60.00
[2024-11-02 22:41] LABS: CA 27-29 58.5 U/mL (<=39.0)
== END ==
LOC: OIDL 09:15
PROVIDERS: ATTENDING PHYSICIAN Internal Medicine Hematology & Oncology; FAMILY PHYSICIAN Nurse Practitioner Adult Health
DX: C50.111 Malignant neoplasm of central portion of right female breast (principal); C50.211 Malignant neoplasm of upper-inner quadrant of right female breast; R14.0 Abdominal distension (gaseous); R10.84 Generalized abdominal pain
CPT/HCPCS: 36415; 80053; 85025; 86300

== ENCOUNTER 2024-11-10 06:02 | Day surgery (SDC) | payer OTHER, SELFPAY ==
--- NOTE | 2024-11-02 11:00 | PTCARENOTE ---
Abnormal WBC 2.8 collected on 11/01/24 reported to Yadira at Dr Marcelino's office.
[2024-11-10] VITALS (13 sets, daily range): BP systolic 88–123; BP diastolic 54–81; BMI 25.6
[2024-11-10] MEDS: NORMOSOL-R/PLASMALYTE-A 1000 IV (06:33)
[2024-11-10] MEDS: DILAUDID 0.5 MG IV ×3 (11:41→12:12)
[2024-11-10] MEDS: ROXICODONE 5 MG PO (13:22)
--- NOTE | 2024-11-10 14:07 | W.IMMPOSTOP ---
Surgical Immed Post Op Note
-
Primary Surgeon: JEAN-CLAUDE Marcelino MD
Assisting Surgeon:
Pre-op Diagnosis: History of breast cancer, history of radiation, history of right mastectomy
Post-op Diagnosis: Same
Procedure Performed: Removal of right breast tissue director of enterprise strategy, insertion of right silicone gel breast implant, revision to right reconstructed breast, suction assisted lipectomy trunk, fat grafting, adjacent tissue transfer, left balancing mastopexy
Anesthesia Type: General
Specimen / Cultures: Right breast skin and nipple
Estimated Blood Loss: 30 cc
Complications: None
Operative Findings: As expected
--- NOTE | 2024-11-10 14:08 | OR.RPT ---
Operative Report
Operative Report
Date of surgery: 11/10/2024
Surgeon: JEAN-CLAUDE Marcelino MD
Preoperative diagnosis:
1. 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
2. History of breast cancer
3. History of radiation
Postoperative diagnosis: Same
Procedure:
1. Removal of right breast tissue paraprofessional education assistant
2. Insertion of right breast silicone gel implant for breast reconstruction
3. Revision to right reconstructed breast via excision of the nipple areolar complex
4. Adjacent tissue transfer trunk, 15 x 6 cm
5. Suction assisted lipectomy trunk for breast reconstruction and balancing symmetry
6. Left breast balancing mastopexy
7. Removal of left chest wall port
8. Fat grafting to the bilateral breasts, 200 cc total
Anesthesia: General
Complications: None
EBL: 30 cc
Specimens: Right breast skin and nipple areolar complex
Indications for procedure: Patient is a 64-year-old female with a right sided breast cancer requiring chemotherapy and radiation. She had an ulcerated lesion requiring significant resection of the chest wall and resultant skin defect. Latissimus
myocutaneous flap reconstruction was performed immediately as well as tissue paraprofessional education assistant placement on the right. She required postoperative radiation therapy which she subsequently completed. After waiting at least 6 months, she presented desiring
definitive reconstruction with a silicone gel implant. She also desired revision to the right reconstructed breast for removal of the scarred and nipple areolar complex which was now out of position. She had redundant skin and subcutaneous fat of
the lateral chest wall following the mastectomy which she desired suction assisted lipectomy as well as skin excision with adjacent tissue transfer. With regards to her left breast, it was ptotic in nature. As such she desired a left balancing
mastopexy for symmetry with her breast reconstruction. Her oncologist cleared her to remove her left chest wall port at the time of surgery. Due to the history of radiation, contour abnormalities and relative asymmetry, fat grafting would be used
to provide additional symmetry and soft tissue contour improvement. She understood the risk of the procedure including risk of residual asymmetry, infection, malposition, implant rupture, capsular contracture, NATTY I, ALCL, need for repeat
procedure. She is consented and desired to proceed accordingly
Procedure in detail:
Patient was identified preoperatively and the surgical site was confirmed to be the bilateral breast and lateral chest wall. Relative areas of lipodystrophy for fat graft donor sites were marked over her lower abdomen and lateral flanks. All
questions were answered and consents were confirmed. Patient was taken back the operating placed upon the table. Anesthesia was induced and the patient was prepped and draped in the usual sterile fashion using ChloraPrep solution. A timeout for
patient safety was performed was confirmed that preoperative antibiotics have been administered and bilateral SCDs were placed. The procedure began with the injection 1% lidocaine with epinephrine in the proposed incisions of the right breast. Of
note there was significant skin redundancy extending into the lateral chest wall. Furthermore there was a residual abnormality of the nipple areolar complex with the scar. As such, a revision to the reconstructed right breast was performed via
excision of the nipple areolar complex and along the inframammary fold. This was extended laterally to remove redundant tissue into the postaxial line. In order to eliminate the dogear, an adjacent tissue transfer was performed with a advancement
of the superior skin flap anteriorly over an area 15 x 6 cm. The backcut was performed in a standing cone to eliminate recurrent dogear. Dissection then continued with Bovie electrocautery through the latissimus muscle flap until the capsule was
encountered. A capsulotomy was performed and tissue paraprofessional education assistant was encountered. Tissue paraprofessional education assistant was drained and removed. Extensive capsulotomies were then performed superior medially to expand the pocket. A gel sizer was then placed to evaluate
the relative pocket size and to aid in selection of the final implant size. It was determined that a approximately at 385 cc implant would be appropriate to achieve her goals. Implant was placed using a no touch technique after irrigating the
pocket and ensuring meticulous hemostasis. Double antibiotic solution and dilute Betadine were utilized. New gloves were donned and a Hensley funnel was used to insert the implant to the right breast pocket. The wound was then closed with 2-0
Vicryl in a running fashion. Additional skin closure was performed using deep dermal 3-0 Monocryl and a 4-0 subcuticular. Tumescent was then distributed in the lateral chest wall bilaterally as well is in the fat grafting donor sites in the lower
abdomen and bilateral flanks. All the tumescent was taking effect, attention was drawn to the left breast to perform the balancing mastopexy. A 38 mm Suda cutter was utilized to jo the nipple areolar complex in a vertical pattern superior
medial pedicle mastopexy was performed. The skin was de-epithelialized within the markings and the medial lateral pillars created with Bovie electrocautery. These pillars were then sutured in place with a series of Vicryl sutures. The nipple was
then rotated and inset with 3-0 and 4-0 Monocryl. The vertical incision was closed with 3-0 and 4-0 Monocryl as well. At this point, an adequate time had passed for the tumescent to take effect. Suction assisted lipectomy of the trunk was
performed in the lateral chest wall to achieve symmetry of the bilateral breast reconstruction. This was done to contour the left lateral breast as well as eliminate redundancy after the mastectomy of the right chest wall. The lower abdomen and
lateral flanks were then lipo aspirated as a donor site for fat grafting. The pure graft system was then utilized to isolate and rinsed the fat for reinjection. While this was being processed, the left chest wall port was removed. An incision was
made over the prior port scar and the capsule was dissected free. The patient was placed in Trendelenburg and the port was gently removed with anesthesia providing Valsalva. Pressure was held over the port site for appropriate mount of time and
the tract was oversewn with 3-0 Vicryl. The capsule was then obliterated and the wound was closed in layers with 3-0 and 4-0 Monocryl. After purifying the fat, approximately 200 cc was was available for fat grafting to the bilateral breast and
chest wall port site. This was distributed evenly to achieve symmetry and eliminate any contour deformities. The patient tolerated the procedure well and was performed out complication. All counts were correct at the end the case. She was
extubated and taken the PACU for further care. All dressings were placed and an abdominal binder and bra were placed.
== END 2024-11-10 15:10 | disposition home or self-care (01) ==
LOC: SDS 06:02
PROVIDERS: ATTENDING PHYSICIAN Surgery Plastic and Reconstructive Surgery; FAMILY PHYSICIAN Nurse Practitioner Adult Health
DX: C50.412 Malignant neoplasm of upper-outer quadrant of left female breast (principal); N60.31 Fibrosclerosis of right breast; Z85.3 Personal history of malignant neoplasm of breast; Z90.11 Acquired absence of right breast and nipple; Z92.3 Personal history of irradiation; Z42.1 Encounter for breast reconstruction following mastectomy
CPT/HCPCS: 19342; 14301; 19380; 36590; 88305

== ENCOUNTER → 2024-11-29 09:11 | Outpatient (REF) | payer OTHER, SELFPAY ==
[2024-11-29 09:33] LABS: Hematocrit 36.6 % (37.0-47.0); Hemoglobin 12.5 g/dL (12.0-16.0); Mean Corp Hgb Conc. 34.2 g/dL (33.0-37.0); Mean Corpuscular Volume 100.0 fL (81.0-99.0); Platelet Count 306 10^3/uL (130-400); Red Cell Dist. Width 14.0 % (11.5-14.5)
[2024-11-29 10:35] LABS: ALT (SGPT) 19 U/L (0-35); AST (SGOT) 24 U/L (14-36); Albumin 4.5 g/dl (3.5-5.0); Alkaline Phosphatase 80 U/L (38-126); Blood Urea Nitrogen 24 mg/dl (7-17); Calcium 9.8 mg/dl (8.4-10.2); Carbon Dioxide 23 mmol/L (22-30); Chloride 109 mmol/L (98-107); Glucose 130 mg/dl (70-99); Potassium 4.6 mmol/L (3.5-5.1); Sodium 140 mmol/L (135-145); Total Protein 7.2 g/dl (6.3-8.2); eGFR > 60.00
== END ==
LOC: OIDL 09:11
PROVIDERS: ATTENDING PHYSICIAN Internal Medicine Hematology & Oncology; FAMILY PHYSICIAN Nurse Practitioner Adult Health
DX: C50.111 Malignant neoplasm of central portion of right female breast (principal)
CPT/HCPCS: 36415; 80053; 85025

== ENCOUNTER 2024-12-15 11:44 | Outpatient (RCR) | payer OTHER, SELFPAY | END 2024-12-15 23:59 | disposition home or self-care (01) | LOC: RPT 11:44 | PROVIDERS: ATTENDING PHYSICIAN Surgery Plastic and Reconstructive Surgery; FAMILY PHYSICIAN Nurse Practitioner Adult Health | DX: D05.81 Other specified type of carcinoma in situ of right breast (principal); Z73.6 Limitation of activities due to disability; R29.3 Abnormal posture; M62.81 Muscle weakness (generalized); L90.5 Scar conditions and fibrosis of skin; Z90.11 Acquired absence of right breast and nipple; Z92.21 Personal history of antineoplastic chemotherapy | CPT/HCPCS: 97110; 97140; 97162; 97530 ==

== ENCOUNTER → 2024-12-27 09:11 | Outpatient (REF) | payer OTHER, SELFPAY ==
[2024-12-27 09:58] LABS: Hematocrit 35.3 % (37.0-47.0); Hemoglobin 12.1 g/dL (12.0-16.0); Mean Corp Hgb Conc. 34.3 g/dL (33.0-37.0); Mean Corpuscular Volume 97.0 fL (81.0-99.0); Platelet Count 182 10^3/uL (130-400); Red Cell Dist. Width 13.8 % (11.5-14.5)
[2024-12-27 12:05] LABS: ALT (SGPT) 14 U/L (0-35); AST (SGOT) 23 U/L (14-36); Albumin 4.5 g/dl (3.5-5.0); Alkaline Phosphatase 65 U/L (38-126); Blood Urea Nitrogen 24 mg/dl (7-17); Calcium 9.5 mg/dl (8.4-10.2); Carbon Dioxide 21 mmol/L (22-30); Chloride 110 mmol/L (98-107); Glucose 99 mg/dl (70-99); Potassium 4.6 mmol/L (3.5-5.1); Sodium 139 mmol/L (135-145); Total Protein 7.5 g/dl (6.3-8.2); eGFR > 60.00
[2024-12-29 00:09] LABS: CA 27-29 55.1 U/mL (<=39.0)
== END ==
LOC: OIDL 09:11
PROVIDERS: ATTENDING PHYSICIAN Internal Medicine Hematology & Oncology; FAMILY PHYSICIAN Nurse Practitioner Adult Health
DX: C50.111 Malignant neoplasm of central portion of right female breast (principal)
CPT/HCPCS: 36415; 80053; 85025; 86300

== ENCOUNTER 2025-01-12 09:59 | Outpatient (RCR) | payer OTHER, SELFPAY | END 2025-01-12 23:59 | disposition home or self-care (01) | LOC: RPT 09:59 | PROVIDERS: ATTENDING PHYSICIAN Surgery Plastic and Reconstructive Surgery; FAMILY PHYSICIAN Nurse Practitioner Adult Health | DX: D05.81 Other specified type of carcinoma in situ of right breast (principal); Z73.6 Limitation of activities due to disability; R29.3 Abnormal posture; M62.81 Muscle weakness (generalized); L90.5 Scar conditions and fibrosis of skin; Z90.11 Acquired absence of right breast and nipple; Z92.21 Personal history of antineoplastic chemotherapy | CPT/HCPCS: 97110; 97140; 97530 ==

== ENCOUNTER 2025-01-24 15:03 | Inpatient (IN) | payer OTHER, SELFPAY ==
[2025-01-24] VITALS (9 sets, daily range): BP systolic 94–141; BP diastolic 49–105; BMI 25.3; BMI 24.7
[2025-01-24 12:48] LABS: Hematocrit 37.8 % (37.0-47.0); Hemoglobin 12.8 g/dL (12.0-16.0); Mean Corp Hgb Conc. 33.9 g/dL (33.0-37.0); Mean Corpuscular Volume 94.7 fL (81.0-99.0); Nucleated Red Blood Cells % 0 %; Platelet Count 256 10^3/uL (130-400); Red Cell Dist. Width 14.3 % (11.5-14.5)
[2025-01-24 12:57] LABS: INR 0.93; PT 12.8 Sec (11.4-14.6)
[2025-01-24 13:10] LABS: ALT (SGPT) 16 U/L (0-35); AST (SGOT) 23 U/L (14-36); Albumin 4.6 g/dl (3.5-5.0); Alkaline Phosphatase 84 U/L (38-126); Blood Urea Nitrogen 19 mg/dl (7-17); Calcium 10.2 mg/dl (8.4-10.2); Carbon Dioxide 24 mmol/L (22-30); Chloride 105 mmol/L (98-107); Estimated Creatinine Clearance 57 ml/min; Glucose 111 mg/dl (70-99); Potassium 4.4 mmol/L (3.5-5.1); Sodium 137 mmol/L (135-145); Total Protein 7.9 g/dl (6.3-8.2); eGFR > 60.00
[2025-01-24 13:14] LABS: Troponin I < 0.012 ng/ml
--- NOTE | 2025-01-24 13:55 | ED.GENMED ---
History of Present Illness
General
Chief Complaint: Abnormal Lab Value
Source: patient
Exam Limitations: none
Time Seen by Provider: 01/24/25 12:45
Nursing documentation reviewed up to this point in time: agreed with
History of Present Illness
History of Present Illness:
Patient with history of breast cancer, presents to ED after outpatient CT scan revealed right-sided pulmonary embolism. Patient reports vague right sided chest wall pain over the past 2 weeks. Denies shortness of breath. Denies fever or chills.
Denies nausea or vomiting. Denies palpitations. Denies leg pain or swelling. Patient does not take any blood thinning medications.
Past History
Past History
ED Past Medical History: None; Negative Asthma, HTN, Hypercholesterolemia or NIDDM
ED Past Surgical History: None
Social History
Tobacco: Non-smoker
Alcohol: Occasional
Personal:
Living: with family
Review of Systems
Review of Systems
Allergies reviewed?: Yes
All Other Systems: ROS reviewed and negative except as documented in HPI and ROS
Constitutional: Reports no symptoms; Denies fever
EENT: Reports no symptoms
Respiratory: Reports no symptoms; Denies cough or trouble breathing
Cardiac: Reports no symptoms; Denies chest pain, palpitations or syncope
ABD/GI: Reports no symptoms
: Reports no symptoms
Musculoskeletal: Reports other (Chest wall pain)
Skin: Reports no symptoms
Neurological: Reports no symptoms
Phy Exam
Physical Exam
Physical Exam:
Physical Exam
General: no apparent distress, not acutely ill. afebrile
Head: nc/at. eomi
Neck: supple. no meningeal signs.
Heart: s1/s2 regular rate and rhythm
Lungs: no acute respiratory distress. clear bilaterally
Abdomen: normal bowel sounds. not tender.
Neuro: alert and oriented x 3. no focal neurological deficits
Skin: no rash
Psychiatric: well kept. interactive and cooperative
Extremities: no edema. no calf tenderness.
Course
Orders/Labs/Results
Orders:
Orders
01/24/25 12:21
Electrocardiogram (*1) Urgent
Reason for Study: Other
Other Reason for Exam: PE
01/24/25 12:22
EKG- Treatment ONCE
01/24/25 12:36
Complete Blood Count/With Diff Urgent
Comprehensive Metabolic Panel Urgent
NT-proBNP Urgent
Comment: ADD ON
PT/INR [Prothrombin Time] Urgent
Troponin I Urgent
01/24/25 13:55
Enoxaparin Sodium [Lovenox] 60 mg SC NOW STA
01/24/25 14:47
Admit/Transfer Patient As Directed
Co-Sign Provider:
Level of Care: Inpatient admission
Assign to:: Telemetry
Physician / Group: Marie Jerez
Diagnosis: pulmonary embolism
Reason for Telemetry: Arrhythmia
Date to Stop Telemetry: 01/27/25
Time to Stop Telemetry: 11:00
Reason for Hospitalization: pulmonary embolism
Expected length of stay greater than two midnights?: Yes
ELOS- Estimated Length of Stay in days: 3
I certify the patient meets the requirements for IP care: Yes
PRN Pain Medication Management As Directed
May give lesser potent ordered pain med per pt: Yes
preference::
Protocol:: Medication orders for pain may be administered in a
manner that supports deferring to patient preference
when the pt is:
- Requesting an ordered lesser potent pain medication.
Least to most potent pain medications are defined
as: acetaminophen < NSAID < tramadol < opioids
(morphine, oxycodone, hydromorphone).
- Requesting a lesser dose of the same medication IF
ORDERED.
- Requesting a less intrusive route of administration
if both routes are prescribed by the provider (PO <
IV).
01/24/25 14:49
Code Status As Directed
Resuscitation Status: Full Code
01/24/25 Dinner
Regular
At Your Request: Full Participation
01/24/25 17:49
Acetaminophen [Tylenol] 650 mg PO Q4HPRN PRN
Loperamide [Imodium] 2 mg PO Q6HPRN PRN diarrhea
01/24/25 17:49
PULMONARY CONSULT Routine
Consulting Provider: Stephenie Lui
Was physician already notified: Yes
Activity As Directed
Activity Level: Ambulate
Intake/ Output As Directed
Frequency: Per unit guidelines
Vital Signs As Directed
Frequency: Per unit guidelines
Weight As Directed
Frequency: Once
Comment: on admission
Pulse Ox/cont/shift [RESP] Routine
Quantity: 1
Special Instructions: check O2 Sat Q8 hours and at each change in oxygen liter flow and FiO2
DX Deep Vein Thrombosis Video Routine
01/24/25 18:00
Montelukast Sodium [Singulair] 10 mg PO QPM
01/25/25 02:00
Enoxaparin Sodium [Lovenox] 60 mg SC Q12H
01/25/25 08:00
Cholecalciferol (Vitamin D3) [VITAMIN D3 (cholecalciferol)] 50 mcg PO DAILY
Jmwqxgdls-Ayu-Cszt [Femara] 2.5 mg PO DAILY
Pantoprazole [Protonix] 40 mg PO DAILY
Vitamin E 400 units PO DAILY
01/25/25 09:21
Complete Blood Count/No Diff IN AM
01/27/25 11:00
DC Protocol for Telemetry ONCE
Abnormal Lab Results
01/24/25
12:36
RBC 3.99 L 10^6/uL
(4.20-5.40)
MCH 32.1 H pg
(27.0-31.0)
BUN 19 H mg/dl
(7-17)
Glucose 111 H mg/dl
(70-99)
01/24/25 12:36
01/24/25 12:36
Vital Signs
Initial and Last Documented VS:
Initial Vital Signs
Temp Pulse Resp BP Pulse Ox
97.8 F 105 16 140/105 98
01/24/25 12:23 01/24/25 12:23 01/24/25 12:23 01/24/25 12:23 01/24/25 12:23
Last Documented Vital Signs
Temp Pulse Resp BP Pulse Ox
97.8 F 84 16 137/89 98
01/25/25 11:10 01/25/25 11:10 01/25/25 11:10 01/25/25 11:10 01/25/25 11:10
MDM/Problems Addressed
MDM/Problems Addressed:
Outpatient CT chest report reviewed. Discussed with on-call pulmonary, Dr. Lui, who recommends admission to the hospital on Lovenox treatment, with plan to obtain echocardiogram as an inpatient.
Patient remains hemodynamically stable without any acute respiratory distress.
*Pulse Oximetry
SaO2: 99
Oxygen Mode of Delivery: Room air
Patient hypoxic: no
*Critical Care Note
Total Time (30-74mins, 75-104mins- exclusive of procedures): Not Applicable
ED Attending Note
-
Portions of this chart may have been created with voice recognition software.� Occasional wrong word or��sound alike� substitutions may have occurred due to the inherent limitations of voice recognition software.
Discharge Plan
Departure
Patient Disposition: Admit
Date of Disposition: 01/24/25
Time of Disposition: 13:59
Admit to: Telemetry
Presentation/result/management discussed w/ accepting MD/DO: Hospitalist
Discharge Problem:
Pulmonary embolism
Interventions
Interventions:
*Risk Screen - Suicide Last Done: 01/24/25 12:23
*General Assessment Last Done: 01/24/25 12:25
*Neglect/Abuse Screening Last Done: 01/24/25 12:23
*ED- Fall Risk Assessment Last Done: 01/24/25 12:50
*ED COVID-19 Vaccine History Last Done: 01/24/25 12:50
*Nursing Disposition Last Done: 01/24/25 17:41
Discharge Date and Time
Discharge Date/Time: 01/24/25 17:42
--- NOTE | 2025-01-24 14:06 | HPS.HSE ---
Addendum entered and electronically signed by Marie Jerez MD 01/24/25 14:56:
This is an addendum to the H&P written by Fara Bradley on 01/24/2025. �Patient seen and examined independently with [employer].
64-year-old female past medical history of breast cancer status post chemotherapy right mastectomy/radiation status post breast reconstruction in October on Verizinio and Letrozole, GERD, presenting after outpatient CT scan showed right-sided pulmonary
embolism. 30-40 pound weight loss recently which prompted CT chest/abdomen and pelvis.� She has been having exertional dyspnea which is chronic and right sided axillary pain for 3 weeks. No fevers or chills. �No palpitations. �No leg swelling or
pain.
Vital signs show tachycardia to 109.
Labs unremarkable. �Troponin negative. �EKG shows normal sinus rhythm.
CT PE/abdomen pelvis shows pulmonary embolism of the right interlobar pulmonary artery and right lower lobe pulmonary artery. �There are right breast changes likely from radiation. �CT scan also shows patchy and, opacity of the anterior aspect of
the right upper lobe and right middle lobe likely radiation therapy changes. �In the inferior lateral right hemithorax small focus of loculated pleural effusion with mild adjacent parenchymal opacity could represent atelectasis versus small foci of
infarction.
Patient with provoked PE secondary to breast cancer vs Verizinio.�
Patient started on Lovenox. �Check venous ultrasound and echo. Hole verizinio for now.� Pulmonary consulted.�
Original Note:
Family Physician
-
Family Physician: JOHNNY Hernandez
Chief Complaint
-
abnormal outpatient CT results
History of Present Illness
Patient is a 64-year-old female with past medical history significant for breast cancer and GERD who presented to [facility] ED for evaluation of abnormal outpatient CT report. Patient reports that her oncologist Dr. Caty Springer at [place] was in the
process of working up non-intentional weight loss of approximately 35 pounds since January of last year and poor appetite. Patient had out patient labs and CT of chest/abdomen/pelvis that indicated right pulmonary embolism involving right
interlobar pulmonary artery and the right lower lobe pulmonary artery. Patient denies any significant symptoms but when questioned in detail she does note exertional dyspnea but feels it has been present since start of treatment in 2023 and has not
gotten worse and she notes right side, right chest and right back discomfort that she felt was from a muscle strain that she has had multiple times post mastectomy. She does beleive discomfort was slightly worse with deep breathing.
Medical History
Past Medical History
Past Medical History: Reports Other
Additional Past Medical History:
breast cancer
GERD
Past Surgical History: Reports Other
Additional Past Surgical History:
US guided Right breast biopsy 04/2023
incisional biopsy Left breast mass 07/2023
Left chest wall port insertion and removal
Right mastectomy SLN mapping and biopsy 01/13/24
Social History
Tobacco: Non-smoker
Alcohol: Occasional (rare)
Drug: None
Personal:
Living: With Family
Employment: Not Employed
Family History
Family History: Other (Mother: breast cancer; Sister: breast cancer; Father: [place] )
Allergies / Home Medications
Allergies reflects when Allergies were last updated in [employer].
Home Medications with original date entered in [employer]
Allergy/Medication List:
Allergies
Allergy/AdvReac Type Severity Reaction Status Date / Time
No Known Allergies Allergy Verified 01/24/25 12:25
Home Medications
esomeprazole magnesium 20 mg capsule,delayed release (Nexium) 20 mg PO DAILY Gastrointestinal Issue 12/04/23
abemaciclib 150 mg tablet (Verzenio) 150 mg PO BID breast cancer 06/28/24
letrozole 2.5 mg tablet 2.5 mg PO DAILY breast cancer 06/28/24
cholecalciferol (vitamin D3) 50 mcg (2,000 unit) tablet (Vitamin D3) 1 unit PO DAILY Supplement 11/03/24
loperamide 2 mg capsule 2 mg PO Q6H PRN diarrhea 11/03/24
ibuprofen 200 mg tablet 600 mg PO Q6H PRN mild pain 01/24/25
montelukast 10 mg tablet 10 mg PO QPM asthma 01/24/25
vitamin E 268 mg (400 unit) capsule 268 mg PO DAILY Supplement 01/24/25
Review of Systems
-
History Source: Patient
Constitutional: Reports Weight Loss (35 pounds since Jan 2024, unintentional )
EENT: Reports No Symptoms
Respiratory: Reports Trouble Breathing (exertional dyspnea )
Cardiac: Reports No Symptoms
Abdomen/GI: Reports No Symptoms
: Reports No Symptoms
Musculoskeletal: Reports No Symptoms
Skin: Reports No Symptoms
Neurological: Reports No Symptoms
Endocrine: Reports No Symptoms
Hematologic/Lymphatic: Reports No Symptoms
Psych: Reports No Symptoms
Physical Exam
Vital Signs
Vital Signs
Temp Pulse Resp BP Pulse Ox
98.1 F 78 23 129/82 99
01/24/25 12:25 01/24/25 13:30 01/24/25 13:30 01/24/25 13:00 01/24/25 13:59
Physical Exam
General: Well Developed, Well Nourished, No Apparent Distress, Comfortable and Conversant
HEENT: NormoCephalic, Moist mucous membranes and Atraumatic
Respiratory: Clear and Non Labored Respirations
Cardiac: S1/S2 and Regular Rhythm; No Murmur, Rub or Gallop
Breast: Deferred by me
GI: Soft, Non Tender, Non Distended and Normal Bowel Sounds
Rectal: Deferred by Provider
Genito-urinary: Deferred by me
Musculoskeletal: No Clubbing, No Cyanosis and No Edema
Skin: Warm and IV/Catheter Site; No Rash
Neuro: Awake, AO x 3 and Nonfocal/grossly intact
Hematologic/Lymphatic: No Lymphadenopathy
Psych: Calm and Intact Judgment/Insight
Laboratory Results
-
01/24/25 12:36
01/24/25 12:36
Laboratory Results
PT 12.8 Sec (11.4-14.6) 01/24/25 12:36
INR 0.93 01/24/25 12:36
Total Bilirubin 0.5 mg/dl (0.2-1.3) 01/24/25 12:36
AST 23 U/L (14-36) 01/24/25 12:36
ALT 16 U/L (0-35) 01/24/25 12:36
Alkaline Phosphatase 84 U/L (38-126) 01/24/25 12:36
Troponin I < 0.012 ng/ml 01/24/25 12:36
Data Reviewed
-
CT Scan: Report Reviewed by me (Chest/Abd/Pel: Pulmonary embolism is noted involving the right interlobar pulmonary artery and the right lower lobe pulmonary artery. Findings communicated by [employer] with Dr. Springer, who instructed me to
have the patient sent to the emergency department. I spoke with the patient and had h)
Medical Tests (Nuc Med, Echo, EKG etc): Report Reviewed by me (EKG: NORMAL SINUS RHYTHM CANNOT RULE OUT INFERIOR INFARCT , AGE UNDETERMINED)
Lab Data: Labs Reviewed by me
Impression/Plan
-
IMPRESSION/PLAN:
#pulmonary embolism
EKG: NORMAL SINUS RHYTHM
CANNOT RULE OUT INFERIOR INFARCT , AGE UNDETERMINED
Chest/Abd/Pel CT: Pulmonary embolism is noted involving the right interlobar pulmonary artery and the right lower lobe pulmonary artery. Findings communicated by [employer] with Dr. Springer,
who instructed me to have the patient sent to the emergency department. I spoke with the patient and had her go to the emergency department.
Right breast implant is present after right mastectomy. There is right breast skin thickening and significant stranding of the fat especially within the soft tissues of the lateral right breast
and extending into the right lateral chest wall. Findings most likely represent changes from radiation therapy. Component of residual neoplastic disease difficult to completely exclude.
Patchy parenchymal opacity within the anterior aspect of the right upper lobe and the right middle lobe, which is most likely radiation therapy changes.
In the inferolateral aspect of the right hemithorax, small focus of loculated pleural fluid with mild adjacent parenchymal opacity. This parenchymal opacity could represent atelectasis, although
this focus could also represent a small focus of infarction.
Small low-density lesion within the anterior liver, stable from prior examination. See above discussion. Continued follow-up is recommended.
Small low-density lesion within the anterior spleen, most likely a small cyst or hemangioma. Continued follow-up is recommended.
Numerous bilateral renal calculi, distribution suggesting medullary nephrocalcinosis.
No evidence for bony metastatic disease.
- Admit to telemetry
- Consult Pulmonary
- Lovenox sq 60mg BID
- Peripheral venous US BLLE
- ECHO
#breast cancer
Follows with Dr. Caty Springer at [facility]
s/p radiation, chemo and mastectomy
- continue letrozole
- hold abemaciclib in setting of PE
#GERD
- continue esomeprazole
Code status: Full Code
DVT prophylaxis: Lovenox Sq
[2025-01-24] MEDS: LOVENOX 60 MG SC (14:34)
--- NOTE | 2025-01-24 14:46 | CON.PUL ---
Consultation
Consultation Request
Date/Time Consultation Requested: 01/24/2025
Date/Time Consultation Performed: 01/24/2025
Medical History
-
Chief Complaint: Weight loss, chest pain
History of Present Illness:
Patient is a very pleasant 63-year-old female with known history of breast cancer diagnosed in 2022 s/p right mastectomy, neoadjuvant therapy as well as radiation therapy, with recent reconstructive surgery in 10/[address] had an outpatient CT chest
abdomen pelvis performed today as part of workup for unintentional weight loss. Imaging was suggestive of new diagnosis of pulmonary embolism and she was sent to emergency room for further evaluation. Patient reports that since her breast
reconstruction surgery in 10/2024 she has had some right sided discomfort pleuritic in nature and does not report any significant change in those symptoms over the last few weeks. She does report some dyspnea going on for the last 3 to 4 weeks but
then she also relates it to essentially the time of surgery with no significant change. Pleuritic discomfort also present on evaluation. No reported cough, expectoration, hemoptysis etc. No prior history of DVT or pulmonary embolism. Patient
does not report any other hospitalization or surgeries other than breast reconstruction and does not report any long travels. No strong family history of DVT or PEs. In view of diagnosis pulmonary embolism, pulmonary consultation was requested for
further input.
Past Medical History
Past Medical History: Reports Other
Additional Past Medical History:
breast cancer
GERD
Past Surgical History: Reports Other
Additional Past Surgical History:
US guided Right breast biopsy 04/2023
incisional biopsy Left breast mass 07/2023
Left chest wall port insertion and removal
Right mastectomy SLN mapping and biopsy 01/13/24
Social History
Tobacco: Non-smoker
Alcohol: Occasional (rare)
Drug: None
Personal:
Living: With Family
Employment: Not Employed
Family History
Family History: Other (Mother: breast cancer; Sister: breast cancer; Father: [place] )
Allergies / Home Medications
Allergies
Allergy/AdvReac Type Severity Reaction Status Date / Time
No Known Allergies Allergy Verified 01/24/25 12:25
Home Medications
�Medication �Instructions �Recorded �Confirmed �Last Taken �Type
esomeprazole magnesium 20 mg 20 mg PO DAILY Gastrointestinal 12/04/23 01/24/25 11/09/24 08:00 History
capsule,delayed release (Nexium) Issue
abemaciclib 150 mg tablet 150 mg PO BID breast cancer 06/28/24 01/24/25 11/01/24 History
(Verzenio)
letrozole 2.5 mg tablet 2.5 mg PO DAILY breast cancer 06/28/24 01/24/25 11/09/24 08:00 History
cholecalciferol (vitamin D3) 50 1 unit PO DAILY Supplement 11/03/24 01/24/25 11/09/24 08:00 History
mcg (2,000 unit) tablet (Vitamin
D3)
loperamide 2 mg capsule 2 mg PO Q6H PRN diarrhea 11/03/24 01/24/25 Unknown History
ibuprofen 200 mg tablet 600 mg PO Q6H PRN mild pain 01/24/25 01/24/25 Unknown History
montelukast 10 mg tablet 10 mg PO QPM asthma 01/24/25 01/24/25 Unknown History
vitamin E 268 mg (400 unit) capsule 268 mg PO DAILY Supplement 01/24/25 01/24/25 Unknown History
Review of Systems
-
Hematologic/Lymphatic: Other (All 14 systems reviewed and negative except as stated above in the history of present illness.)
Vitals / Labs / Diagnostic Testing
Vital Signs
Temp Pulse Resp BP Pulse Ox
98.1 F 78 23 129/82 99
01/24/25 12:25 01/24/25 13:30 01/24/25 13:30 01/24/25 13:00 01/24/25 13:59
Lab Data
01/24/25 12:36
01/24/25 12:36
Laboratory Results
01/24/25
12:36
PT 12.8
INR 0.93
Diagnostic Testing:
Physical Exam
-
HEENT: Normocephalic
Cardiovascular: S1/S2
Respiratory: Clear
GI: Soft and Non Distended
Neurology: Awake and Alert
Skin: Warm
General: Comfortable
Assessment
-
#1. Acute Pulmonary embolism
- Underlying risk factors include, Verzinio and Letrozole therapy, s/p right breast tissue head well puller removal in 10/2024 followed by silicone implant and breast reconstruction surgery, underlying Breast cancer
- Agree with Lovenox 1 mg/kg SQ every 12 hours, likely can transition to Eliquis in next 24 hours
- Defer duration of anticoagulation to hematology oncology service. At minimum patient should stay on anticoagulation as long as letrozole therapy is being continued.
- Troponin and BNP unremarkable, no evidence of right heart strain, hemodynamically stable, no indication for catheter directed therapies. MAP 74, HR 86, 96% on RA. Work of breathing normal.
- sPESI score = 1. Anticipate discharge home on oral anticoagulants in the next 24 hours
- Check lower and upper extremity venous US
#2. RUL and RML patchy opacities
- Suspect radiation related changes rather than active infection. Pulmonary infarction due to PE also in differential diagnosis
- Patient is afebrile, no cough, no fever or expectoration, monitor off antibiotics
- Patient will need outpatient follow-up imaging for ongoing monitoring, will arrange follow-up with [facility] pulmonary clinic
#3. H/O Immunotherapy related Pneumonitis (2023)
- Prior history of treatment with Keytruda, with suspected pneumonitis. Reported mosaic pattern on the CT scan, responded well to steroids, since resolved.
- Patient has followed up with [facility] pulmonary clinic with Dr. Dong in 02/2024. Pulmonary changes had resolved and patient was doing well
#4. H/o CA Breast (Tripple negative, Feb 2023)
- Patient had fungating right-sided breast cancer, s/p right mastectomy and neoadjuvant chemotherapy as well as postop radiation.
- Currently on Verzenio, letrozole
Other medical diagnoses:
- GERD
Total time spent on this consultation/encounter __72__ minutes which includes review of history, physical exam, medications, laboratory data, personal review of imaging, extensive review of outpatient records, discussion with care team and
respiratory therapy.
Data:
CT C/A/P 01/2025: Pulmonary embolism is noted involving the right interlobar pulmonary artery and the right lower lobe pulmonary artery.
Right breast implant is present after right mastectomy. There is right breast skin thickening and significant stranding of the fat especially within the soft tissues of the lateral right breast and extending into the right lateral chest wall.
Findings most likely represent changes from radiation therapy. Component of residual neoplastic disease difficult to completely exclude.
Patchy parenchymal opacity within the anterior aspect of the right upper lobe and the right middle lobe, which is most likely radiation therapy changes.
In the inferolateral aspect of the right hemithorax, small focus of loculated pleural fluid with mild adjacent parenchymal opacity. This parenchymal opacity could represent atelectasis, although this focus could also represent a small focus of
infarction.
Small low-density lesion within the anterior liver, stable from prior examination. See above discussion. Continued follow-up is recommended.
Small low-density lesion within the anterior spleen, most likely a small cyst or hemangioma. Continued follow-up is recommended.
Numerous bilateral renal calculi, distribution suggesting medullary nephrocalcinosis.
No evidence for bony metastatic disease.
PET-CT 07/2023: Multicentric right breast carcinoma, the most medially situated mass is again noted to be contiguous with the pectoralis muscle margin, no definite intramuscular FDG activity. The mass itself has increased in size, with increased
lobulation, however decreased in FDG avidity.
The previously described separate central 12:00 position right breast mass is no longer visualized in the same manner. Consistent with positive response to therapy.
A small satellite focus of FDG avidity in the lateral aspect of the right breast has decreased FDG avidity, consistent with positive response to therapy.
Persistent FDG avid axillary lymphadenopathy. Slight decrease in FDG avidity.
Decreased FDG avidity of a superior right internal mammary lymph node, however there is a new slightly inferior FDG avid internal mammary lymph node. Consistent with progression of disease.
No findings to suggest FDG avid distant metastatic disease.
[2025-01-24] MEDS: SINGULAIR 10 MG PO (18:08)
[2025-01-25] MEDS: LOVENOX 60 MG SC (03:00)
[2025-01-25 03:28] VITALS: BP 115/73
[2025-01-25 07:40] VITALS: BP 124/79
[2025-01-25] MEDS: FEMARA 2.5 MG PO (09:33)
[2025-01-25] MEDS: VITAMIN E 400 UNITS PO (09:34)
[2025-01-25] MEDS: VITAMIN D3 (cholecalciferol) 50 MCG PO (09:35)
[2025-01-25] MEDS: PROTONIX 40 MG PO (09:35)
[2025-01-25 09:46] LABS: Hematocrit 39.6 % (37.0-47.0); Hemoglobin 13.3 g/dL (12.0-16.0); Mean Corp Hgb Conc. 33.6 g/dL (33.0-37.0); Mean Corpuscular Volume 97.1 fL (81.0-99.0); Platelet Count 283 10^3/uL (130-400); Red Cell Dist. Width 14.4 % (11.5-14.5)
--- NOTE | 2025-01-25 09:56 | CON.ONC ---
Consultation
-
Date Consultation Requested: 01/25/25
Date Consultation Performed: 01/25/25
Requesting Provider: Dr. Roosevelt Hall
Performing Provider: Dr. Toshia Davenport
Reason for Consultation: breast cancer and VTE
Impression
Impression
Locally advanced breast cancer with at least 2 primaries, node positive, triple negative and ER+ -on letrozole, verzenio -Restaging CT 01/24/2025 stable
pulmonary emboli
unintentional weight loss
osteopenia
Plan
Plan
currently on enoxaparin, would transition to therapeutic DOAC at discharge. Duration to be determined in ongoing follow up with Dr. Song to assess risk/benefit of thrombosis risk and bleeding risk.
continue letozole and verzenio
Has OP follow up with Dr. Marjorie Springer 02/10/2025
Patient History
History of Present Illness
64yo F known to Dr. Song for locally advanced breast cancer on letrozole and Verzenio presented to the ER after OP restaging imaging showed an acute pulmonary emboli. [facility] CT chest/abdomen pelvis shows a pulmonary embolism of the right
interlobar pulmonary artery and right lower lobe pulmonary artery. �There are right breast changes likely from radiation. �CT scan also shows patchy and, opacity of the anterior aspect of the right upper lobe and right middle lobe likely radiation
therapy changes. �In the inferior lateral right hemithorax small focus of loculated pleural effusion with mild adjacent parenchymal opacity could represent atelectasis versus small foci of infarction. Lower extremity US showed no evidence of DVT.
She has no significant abnormalities on her admission CBC and CMP. She has been admitted and started on therapeutic enoxaparin.
afebrile, no hypoxia or hypotension
Past-Medical/Surgical History
PMH breast cancer, nephrolithiasis
PSH Kidney�stone�procedure�2016, D&E�1987 Mastopexy�/�Dr.�Paliga, mediport placement and removal
Social never smoker, denies ETOH or recreational drugs. Employed cleaning houses. .
Family father thyroid cancer, mother breast cancer, sister breast cancer
Patient Medication
�Medication �Instructions �Recorded �Confirmed �Last Taken �Type
esomeprazole magnesium 20 mg 20 mg PO DAILY Gastrointestinal 12/04/23 01/24/25 11/09/24 08:00 History
capsule,delayed release (Nexium) Issue
abemaciclib 150 mg tablet 150 mg PO BID breast cancer 06/28/24 01/24/25 11/01/24 History
(Verzenio)
letrozole 2.5 mg tablet 2.5 mg PO DAILY breast cancer 06/28/24 01/24/25 11/09/24 08:00 History
cholecalciferol (vitamin D3) 50 1 unit PO DAILY Supplement 11/03/24 01/24/25 11/09/24 08:00 History
mcg (2,000 unit) tablet (Vitamin
D3)
loperamide 2 mg capsule 2 mg PO Q6H PRN diarrhea 11/03/24 01/24/25 Unknown History
ibuprofen 200 mg tablet 600 mg PO Q6H PRN mild pain 01/24/25 01/24/25 Unknown History
montelukast 10 mg tablet 10 mg PO QPM asthma 01/24/25 01/24/25 Unknown History
vitamin E 268 mg (400 unit) capsule 268 mg PO DAILY Supplement 01/24/25 01/24/25 Unknown History
Active Medications
Generic Name Dose Route Start Last Admin
Trade Name Freq PRN Reason Stop Dose Admin
Acetaminophen 650 mg 01/24/25 17:49
Acetaminophen 325 Mg Tablet PO 02/21/25 17:48
Q4HPRN PRN
mild pain/temp > 100.4 F
Cholecalciferol 50 mcg 01/25/25 08:00 01/25/25 09:35
Cholecalciferol (Vitamin D3) 50 Mcg Tablet (2,000 Units) PO 02/22/25 07:59 50 mcg
DAILY GASTON Administration
Enoxaparin Sodium 60 mg 01/25/25 02:00 01/25/25 03:00
Enoxaparin Sodium 60 Mg/0.6 Ml Syringe SC 02/22/25 01:59 60 mg
Q12H GASTON Administration
Letrozole 2.5 mg 01/25/25 08:00 01/25/25 09:33
Letrozole 2.5 Mg (Non-Form) Tablet PO 02/22/25 07:59 2.5 mg
DAILY GASTON Administration
Loperamide HCl 2 mg 01/24/25 17:49
Loperamide 2 Mg Capsule PO 02/21/25 17:48
Q6HPRN PRN
diarrhea
Montelukast Sodium 10 mg 01/24/25 18:00 01/24/25 18:08
Montelukast Sodium 10 Mg Tablet PO 02/21/25 17:59 10 mg
QPM GASTON Administration
Pantoprazole Sodium 40 mg 01/25/25 08:00 01/25/25 09:35
Pantoprazole 40 Mg Delayed Release Tablet PO 02/22/25 07:59 40 mg
DAILY GASTON Administration
Sodium Chloride 0 flush 01/24/25 18:00
Sodium Chloride 0.9% (Flush) Syringe IV 02/21/25 17:59
PER PROTOCOL GASTON
Vitamin E 400 units 01/25/25 08:00 01/25/25 09:34
Vitamin E 400 International Units Capsule (180 Mg) PO 02/22/25 07:59 400 units
DAILY GASTON Administration
Review of Systems
-
ROS is notable for HPI, otherwise negative
Physical Exam
-
Right mastectomy with implant
General: No Apparent Distress
HEENT: Moist Mucous Membranes; Negative Jaundice
Pulmonary: Other (unlabored)
GI: Soft
Extremities: Pulses Present; Negative Edema
Neurology: Non Focal
Psych: Calm
Labs
Lab Results
WBC 3.5 10^3/uL (4.8-10.8) L 01/25/25 09:21
RBC 4.08 10^6/uL (4.20-5.40) L 01/25/25 09:21
Hgb 13.3 g/dL (12.0-16.0) 01/25/25 09:21
Hct 39.6 % (37.0-47.0) 01/25/25 09:21
MCV 97.1 fL (81.0-99.0) 01/25/25 09:21
MCH 32.6 pg (27.0-31.0) H 01/25/25 09:21
MCHC 33.6 g/dL (33.0-37.0) 01/25/25 09:
RDW 14.4 % (11.5-14.5) 01/25/25 09:21
Plt Count 283 10^3/uL (130-400) 01/25/25 09:21
MPV 9.6 fL (7.4-10.4) 01/25/25 09:21
Abs Immat Gran (auto) 0.0 10^3/uL (0-0.05) 01/24/25 12:36
Absolute Neuts (auto) 3.0 10^3/uL (1.4-6.5) 01/24/25 12:36
Absolute Lymphs (auto) 1.2 10^3/uL (1.2-3.4) 01/24/25 12:36
Absolute Monos (auto) 0.4 10^3/uL (0.1-0.6) 01/24/25 12:36
Absolute Eos (auto) 0.1 10^3/uL (0-0.7) 01/24/25 12:36
Absolute Basos (auto) 0.1 10^3/uL (0-0.2) 01/24/25 12:36
Immature Gran % 0.2 % (0-0.5) 01/24/25 12:36
Neutrophils % 62.5 % (42.2-75.2) 01/24/25 12:36
Lymphocytes % 25.9 % (20.5-51.1) 01/24/25 12:36
Monocytes % 8.2 % (1.7-9.3) 01/24/25 12:36
Eosinophils % 1.3 % (0-6) 01/24/25 12:36
Basophils % 1.9 % (0-2) 01/24/25 12:36
Creatinine 0.8 mg/dL (0.6-1.0) 01/24/25 12:36
Vital Signs
Vital Signs
Temp Pulse Resp BP Pulse Ox
98.2 F 93 16 124/79 95
01/25/25 07:40 01/25/25 07:40 01/25/25 07:40 01/25/25 07:40 01/25/25 07:40
[2025-01-25 11:10] VITALS: BP 137/89
--- NOTE | 2025-01-25 11:24 | W.PN.HOSP.TC ---
Addendum entered and electronically signed by Roosevelt Hall MD 01/25/25 13:33:
Time of discharge 38 minutes
Original Note:
Today's Communication/Plan
-
Monitor vital signs
see plan
Discussed with pulmonary and hematology, switch to Eliquis
commercial intelligence manager for Eliquis cost
Possible discharge today
Assessment / Plan
Assessment / Plan
General: Well Developed, Well Nourished, No Apparent Distress, Comfortable and Conversant
HEENT: NormoCephalic, Moist mucous membranes and Atraumatic
Respiratory: Clear and Non Labored Respirations
Cardiac: S1/S2 and Regular Rhythm
GI: Soft, Non Tender, Non Distended and Normal Bowel Sounds
Musculoskeletal:No Edema
Neuro: Awake, AO x 3 and Nonfocal/grossly intact
Psych: Calm and Intact Judgment/Insight
Chest/Abd/Pel CT: Pulmonary embolism is noted involving the right interlobar pulmonary artery and the right lower lobe pulmonary artery. Findings communicated by Osiel escudero with Dr. Springer,
who instructed me to have the patient sent to the emergency department. I spoke with the patient and had her go to the emergency department.
Right breast implant is present after right mastectomy. There is right breast skin thickening and significant stranding of the fat especially within the soft tissues of the lateral right breast
and extending into the right lateral chest wall. Findings most likely represent changes from radiation therapy. Component of residual neoplastic disease difficult to completely exclude.
Patchy parenchymal opacity within the anterior aspect of the right upper lobe and the right middle lobe, which is most likely radiation therapy changes.
In the inferolateral aspect of the right hemithorax, small focus of loculated pleural fluid with mild adjacent parenchymal opacity. This parenchymal opacity could represent atelectasis, although
this focus could also represent a small focus of infarction.
Small low-density lesion within the anterior liver, stable from prior examination. See above discussion. Continued follow-up is recommended.
Small low-density lesion within the anterior spleen, most likely a small cyst or hemangioma. Continued follow-up is recommended.
Numerous bilateral renal calculi, distribution suggesting medullary nephrocalcinosis.
No evidence for bony metastatic disease.
Acute pulmonary embolism
appears provoked Likely secondary to underlying risk factors including Verzinio and Letrozole therapy, s/p right breast tissue solutions architect removal in 10/2024 followed by silicone implant and breast reconstruction surgery, underlying Breast cancer
Pulmonary following, continues to be on room air. No tachycardia. No signs of heart strain. Discussed with pulmonary and they are okay with patient anticoagulation being switched to Eliquis from Lovenox
Seen by hematology, defer to outpatient regarding decision for Verzenio and letrozole however okay to continue for now per hematology
- Peripheral venous US neg for DVT
- ECHO wihtout strain
Switch to Eliquis, residential case manager for cost
#breast cancer
Follows with Dr. Caty Springer at [facility]
s/p radiation, chemo and mastectomy
- continue letrozole
- hold abemaciclib in setting of PE
#GERD
- continue esomeprazole
Code status: Full Code
DVT prophylaxis: eliquis
Anticipated Discharge: Today
Subjective/Interval History
-
Date of Service: January 25, 2025
denies pain
Objective Data
-
Labs:
Laboratory Results
01/25/25
09:21
WBC 3.5 L
Hgb 13.3
Hct 39.6
Plt Count 283
Vital Signs:
Vital Signs
Temp Pulse Resp BP Pulse Ox
98.2 F 93 16 124/79 95
01/25/25 07:40 01/25/25 07:40 01/25/25 07:40 01/25/25 07:40 01/25/25 07:40
I&O
01/24/25 01/25/25 01/26/25
06:59 06:59 06:59
Intake Total 480 / 480
Balance 480 / 480
--- NOTE | 2025-01-25 12:21 | W.PN.PUL3 ---
Today's Communication / Plan
-
- Can transition to Eliquis p.o.
- Can be discharged home from pulmonary standpoint. Will arrange outpatient follow-up with pulmonary clinic
Assessment
-
Patient is a very pleasant 63-year-old female with known history of breast cancer diagnosed in 2022 s/p right mastectomy, neoadjuvant therapy as well as radiation therapy, with recent reconstructive surgery in 10/[address] had an outpatient CT chest
abdomen pelvis performed today as part of workup for unintentional weight loss. Imaging was suggestive of new diagnosis of pulmonary embolism and she was sent to emergency room for further evaluation. Patient reports that since her breast
reconstruction surgery in 10/2024 she has had some right sided discomfort pleuritic in nature and does not report any significant change in those symptoms over the last few weeks. She does report some dyspnea going on for the last 3 to 4 weeks but
then she also relates it to essentially the time of surgery with no significant change. Pleuritic discomfort also present on evaluation. No reported cough, expectoration, hemoptysis etc. No prior history of DVT or pulmonary embolism. Patient
does not report any other hospitalization or surgeries other than breast reconstruction and does not report any long travels. No strong family history of DVT or PEs. In view of diagnosis pulmonary embolism, pulmonary consultation was requested for
further input.
#1. Acute Pulmonary embolism
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
- Agree with Lovenox 1 mg/kg SQ every 12 hours, can transition to Eliquis today
- Defer duration of anticoagulation to hematology oncology service. At minimum patient should stay on anticoagulation as long as letrozole therapy is being continued.
- Troponin and BNP unremarkable, no evidence of right heart strain, hemodynamically stable, no indication for catheter directed therapies. Saturating well on room air, work of breathing normal
- sPESI score = 1. Anticipate discharge home on oral anticoagulants today
- Negativelower and upper extremity venous US
#2. RUL and RML patchy opacities
- Suspect radiation related changes rather than active infection. Pulmonary infarction due to PE also in differential diagnosis
- Patient is afebrile, no cough, no fever or expectoration, monitor off antibiotics
- Patient will need outpatient follow-up imaging for ongoing monitoring, will arrange follow-up with [facility] pulmonary clinic
#3. H/O Immunotherapy related Pneumonitis (2023)
- Prior history of treatment with Keytruda, with suspected pneumonitis. Reported mosaic pattern on the CT scan, responded well to steroids, since resolved.
- Patient has followed up with [facility] pulmonary clinic with Dr. Dong in 02/2024. Pulmonary changes had resolved and patient was doing well
#4. H/o CA Breast (Tripple negative, Feb 2023)
- Patient had fungating right-sided breast cancer, s/p right mastectomy and neoadjuvant chemotherapy as well as postop radiation.
- Currently on Verzenio, letrozole
Patient will resume follow-up with Dr. Dong at [facility] and will need a follow-up imaging in about 3 months time.
Other medical diagnoses:
- GERD
Total time spent on this consultation/encounter __38__ minutes which includes review of history, physical exam, medications, laboratory data, personal review of imaging, extensive review of outpatient records, discussion with care team and
respiratory therapy.
Data:
CT C/A/P 01/2025: Pulmonary embolism is noted involving the right interlobar pulmonary artery and the right lower lobe pulmonary artery.
Right breast implant is present after right mastectomy. There is right breast skin thickening and significant stranding of the fat especially within the soft tissues of the lateral right breast and extending into the right lateral chest wall.
Findings most likely represent changes from radiation therapy. Component of residual neoplastic disease difficult to completely exclude.
Patchy parenchymal opacity within the anterior aspect of the right upper lobe and the right middle lobe, which is most likely radiation therapy changes.
In the inferolateral aspect of the right hemithorax, small focus of loculated pleural fluid with mild adjacent parenchymal opacity. This parenchymal opacity could represent atelectasis, although this focus could also represent a small focus of
infarction.
Small low-density lesion within the anterior liver, stable from prior examination. See above discussion. Continued follow-up is recommended.
Small low-density lesion within the anterior spleen, most likely a small cyst or hemangioma. Continued follow-up is recommended.
Numerous bilateral renal calculi, distribution suggesting medullary nephrocalcinosis.
No evidence for bony metastatic disease.
PET-CT 07/2023: Multicentric right breast carcinoma, the most medially situated mass is again noted to be contiguous with the pectoralis muscle margin, no definite intramuscular FDG activity. The mass itself has increased in size, with increased
lobulation, however decreased in FDG avidity.
The previously described separate central 12:00 position right breast mass is no longer visualized in the same manner. Consistent with positive response to therapy.
A small satellite focus of FDG avidity in the lateral aspect of the right breast has decreased FDG avidity, consistent with positive response to therapy.
Persistent FDG avid axillary lymphadenopathy. Slight decrease in FDG avidity.
Decreased FDG avidity of a superior right internal mammary lymph node, however there is a new slightly inferior FDG avid internal mammary lymph node. Consistent with progression of disease.
No findings to suggest FDG avid distant metastatic disease.
Subjective Data
-
Date of Service:
Date of Service: January 25, 2025
Subjective:
Patient comfortably sitting in bed in no acute distress.
Review of Systems
Genitourinary: Other (All 14 systems reviewed and negative except as stated above in the history of present illness.)
Objective Data
Data Reviewed
Vital Signs / I&O / Oxygen:
Vital Signs
Temp Pulse Resp BP Pulse Ox
97.8 F 84 16 137/89 98
01/25/25 11:10 01/25/25 11:10 01/25/25 11:10 01/25/25 11:10 01/25/25 11:10
Intake and Output
01/24/25 01/25/25 01/26/25
06:59 06:59 06:59
Intake Total 480 / 480
Balance 480 / 480
SaO2 98
Physical Exam
General: Comfortable
HEENT: Normocephalic
Cardiovascular: S1-S2
Respiratory: Clear and Non-Labored Respirations
GI: Soft and Non Distended
Neurology: Awake, Alert and Oriented
Skin: Warm
Labs/Micro/Reports
Lab Data
01/25/25 09:21
01/24/25 12:36
Laboratory Results
01/24/25
12:36
PT 12.8
INR 0.93
--- NOTE | 2025-01-25 13:29 | CM ---
manager loss prevention reviewed patient's chart and met with patient and patient lives with her spouse in a one story home, patient is independent with adl's and ambulation, no dme, patient drives, home today.
Cost of Eliquis for patient is $100 per month, patient provided with first month free coupon and manufacturers coupon.
PCP: Olena Garcia
Pharmacy: [facility] in [place]
--- NOTE | 2025-01-25 13:33 | W.DCSUMMARY ---
Discharge Summary
Discharge Data
Date of Admission: 01/24/25
Date of Discharge: 01/25/25
-
Pending Results: No
Hospital Course
64-year-old female with past medical history of breast cancer status post radiation, chemotherapy and mastectomy, GERD came to the hospital after having CT scan outpatient positive for acute pulmonary embolism. Patient was seen by pulmonary on
admission and was recommended trial of Lovenox. While in the hospital patient had peripheral venous ultrasound which was negative for DVT. Patient is still on Verzenio and letrozole so oncology was consulted who recommended to continue these
medications on discharge and to have patient follow-up with her outpatient oncologist. Once patient oxygenation was stable and she tolerated Lovenox, her anticoagulation was switched to Eliquis prior to discharge. Since her symptoms were
improving, she was then discharged home with instructions to follow-up with all her physicians outpatient.
Discharge Plan
-
Patient Disposition: Home (Routine Discharge)
Discharge Diagnosis/Procedures: Acute pulmonary embolism
Suspect atelectasis
Condition: Fair
Diet: As tolerated
Activity: As tolerated and No strenuous activity
Driving Restrictions: As prior to admission
Bathing Restrictions: None
Activity Restrictions/Additional Instructions:
Continue 10 mg twice daily Eliquis through 01/31/2025. Starting 02/01 decrease to 5 mg twice daily
Referrals:
Natalia Dong MD [Active, Pulmonary Medicine] - in six weeks
Olena Macdonald CRNP [Family Provider, Internal Medicine] - in less than 1 week
Cheryl Song MD [Active, Hematology / Oncology] - in less than 1 week
Prescriptions:
New
Eliquis 5 mg tablet
5 mg PO BID Qty: 60 0RF
Rx Instructions:
10 mg twice daily Eliquis through 01/31/2025. Starting 02/01 decrease to 5 mg twice daily
Continued
esomeprazole magnesium [Nexium] 20 mg Capsule,Delayed Release(Dr/Ec)
20 mg PO DAILY
letrozole 2.5 mg Tablet
2.5 mg PO DAILY
Verzenio 150 mg Tablet
150 mg PO BID
loperamide 2 mg Capsule
2 mg PO Q6H PRN (Reason: diarrhea)
cholecalciferol (vitamin D3) [Vitamin D3] 50 mcg (2,000 unit) Tablet
1 unit PO DAILY
montelukast 10 mg tablet
10 mg PO QPM
vitamin E 268 mg (400 unit) Capsule
268 mg PO DAILY
Discontinued
ibuprofen 200 mg Tablet
600 mg PO Q6H PRN (Reason: mild pain)
Discharge Orders:
Discharge Patient (As Directed); Ordered 01/25/25
Ordered By: Roosevelt Hall
Discharge Date and Time
Discharge Date/Time: 01/25/25 16:13
Print Language: PAKISTANI
[2025-01-25] MEDS: ELIQUIS 10 MG PO (13:43)
[2025-01-25 15:05] VITALS: BP 128/81
[2025-01-25 15:49] VITALS: BP 128/81
== END 2025-01-25 16:13 | disposition home or self-care (01) | DRG 176 ==
LOC: 4 WEST ACU 15:03
PROVIDERS: Nurse Practitioner Family; Student in an Organized Health Care Education/Training Program; ADMITTING PHYSICIAN Hospitalist; ATTENDING PHYSICIAN Internal Medicine; CONSULT PHYSICIAN Internal Medicine; CONSULT PHYSICIAN Internal Medicine Hematology & Oncology; EMERGENCY PHYSICIAN Emergency Medicine; FAMILY PHYSICIAN Nurse Practitioner Adult Health
DX: I26.99 Other pulmonary embolism without acute cor pulmonale (principal); J98.11 Atelectasis; J90 Pleural effusion, not elsewhere classified; K21.9 Gastro-esophageal reflux disease without esophagitis; Z85.3 Personal history of malignant neoplasm of breast; Z92.3 Personal history of irradiation; Z80.3 Family history of malignant neoplasm of breast; Z82.49 Family history of ischemic heart disease and other diseases of the circulatory system; Z90.11 Acquired absence of right breast and nipple; M85.80 Other specified disorders of bone density and structure, unspecified site; Z79.811 Long term (current) use of aromatase inhibitors; Z80.8 Family history of malignant neoplasm of other organs or systems; Z87.442 Personal history of urinary calculi; Z92.21 Personal history of antineoplastic chemotherapy
CPT/HCPCS: 36415; 71260; 74177; 80053; 83880; 84484; 85025; 85027; 85610; 93005; 93306; 93970; 96372; 99285; Q9967

== ENCOUNTER 2025-02-09 10:07 | Outpatient (RCR) | payer OTHER, SELFPAY | END 2025-02-09 23:59 | disposition home or self-care (01) | LOC: RPT 10:07 | PROVIDERS: ATTENDING PHYSICIAN Surgery Plastic and Reconstructive Surgery; FAMILY PHYSICIAN Nurse Practitioner Adult Health | DX: D05.81 Other specified type of carcinoma in situ of right breast (principal); Z73.6 Limitation of activities due to disability; R29.3 Abnormal posture; M62.81 Muscle weakness (generalized); L90.5 Scar conditions and fibrosis of skin; Z90.11 Acquired absence of right breast and nipple; Z92.21 Personal history of antineoplastic chemotherapy | CPT/HCPCS: 97110; 97140; 97164; 97530 ==

== ENCOUNTER → 2025-02-21 09:09 | Outpatient (REF) | payer OTHER, SELFPAY ==
[2025-02-21 09:51] LABS: Hematocrit 36.2 % (37.0-47.0); Hemoglobin 12.2 g/dL (12.0-16.0); Mean Corp Hgb Conc. 33.7 g/dL (33.0-37.0); Mean Corpuscular Volume 96.3 fL (81.0-99.0); Platelet Count 263 10^3/uL (130-400); Red Cell Dist. Width 14.7 % (11.5-14.5)
[2025-02-21 10:25] LABS: ALT (SGPT) 16 U/L (0-35); AST (SGOT) 23 U/L (14-36); Albumin 4.3 g/dl (3.5-5.0); Alkaline Phosphatase 70 U/L (38-126); Blood Urea Nitrogen 24 mg/dl (7-17); Calcium 9.4 mg/dl (8.4-10.2); Carbon Dioxide 25 mmol/L (22-30); Chloride 106 mmol/L (98-107); Glucose 100 mg/dl (70-99); Potassium 4.5 mmol/L (3.5-5.1); Sodium 138 mmol/L (135-145); Total Protein 7.0 g/dl (6.3-8.2); eGFR > 60.00
[2025-02-22 23:09] LABS: CA 27-29 67.3 U/mL (<=39.0)
== END ==
LOC: OIDL 09:09
PROVIDERS: ATTENDING PHYSICIAN Internal Medicine Hematology & Oncology; FAMILY PHYSICIAN Nurse Practitioner Adult Health
DX: C50.111 Malignant neoplasm of central portion of right female breast (principal); C50.211 Malignant neoplasm of upper-inner quadrant of right female breast; R14.0 Abdominal distension (gaseous); R10.84 Generalized abdominal pain; R63.4 Abnormal weight loss
CPT/HCPCS: 36415; 80053; 85025; 86300

== ENCOUNTER 2025-03-16 07:48 | Outpatient (RCR) | payer OTHER, SELFPAY | END 2025-03-16 23:59 | disposition home or self-care (01) | LOC: RPT 07:48 | PROVIDERS: ATTENDING PHYSICIAN Surgery Plastic and Reconstructive Surgery; FAMILY PHYSICIAN Nurse Practitioner Adult Health | DX: D05.81 Other specified type of carcinoma in situ of right breast (principal); Z73.6 Limitation of activities due to disability; R29.3 Abnormal posture; M62.81 Muscle weakness (generalized); L90.5 Scar conditions and fibrosis of skin; Z90.11 Acquired absence of right breast and nipple; Z92.21 Personal history of antineoplastic chemotherapy | CPT/HCPCS: 97110; 97112; 97140; 97530 ==

== ENCOUNTER → 2025-03-21 09:21 | Outpatient (REF) | payer OTHER, SELFPAY ==
[2025-03-21 09:41] LABS: Hematocrit 39.8 % (37.0-47.0); Hemoglobin 13.5 g/dL (12.0-16.0); Mean Corp Hgb Conc. 33.9 g/dL (33.0-37.0); Mean Corpuscular Volume 95.4 fL (81.0-99.0); Platelet Count 280 10^3/uL (130-400); Red Cell Dist. Width 13.7 % (11.5-14.5)
[2025-03-21 10:27] LABS: ALT (SGPT) 16 U/L (0-35); AST (SGOT) 23 U/L (14-36); Albumin 4.7 g/dl (3.5-5.0); Alkaline Phosphatase 71 U/L (38-126); Blood Urea Nitrogen 22 mg/dl (7-17); Calcium 9.8 mg/dl (8.4-10.2); Carbon Dioxide 22 mmol/L (22-30); Chloride 105 mmol/L (98-107); Glucose 122 mg/dl (70-99); Potassium 4.3 mmol/L (3.5-5.1); Sodium 137 mmol/L (135-145); Total Protein 7.8 g/dl (6.3-8.2); eGFR > 60.00
== END ==
LOC: OIDL 09:21
PROVIDERS: ATTENDING PHYSICIAN Internal Medicine Hematology & Oncology
DX: C50.111 Malignant neoplasm of central portion of right female breast (principal); C50.211 Malignant neoplasm of upper-inner quadrant of right female breast; R14.0 Abdominal distension (gaseous); R10.84 Generalized abdominal pain; R63.4 Abnormal weight loss
CPT/HCPCS: 36415; 80053; 85025

== ENCOUNTER 2025-03-23 08:55 | Outpatient (RCR) | payer OTHER, SELFPAY | END 2025-03-25 13:33 | disposition home or self-care (01) | LOC: RPT 08:55 | PROVIDERS: ATTENDING PHYSICIAN Surgery Plastic and Reconstructive Surgery; FAMILY PHYSICIAN Nurse Practitioner Adult Health | DX: D05.81 Other specified type of carcinoma in situ of right breast (principal); Z73.6 Limitation of activities due to disability; R29.3 Abnormal posture; M62.81 Muscle weakness (generalized); L90.5 Scar conditions and fibrosis of skin; Z90.11 Acquired absence of right breast and nipple; Z92.21 Personal history of antineoplastic chemotherapy | CPT/HCPCS: 97140; 97530 ==

== ENCOUNTER → 2025-05-07 11:28 | Outpatient (REF) | payer OTHER, SELFPAY | LOC: RAD 11:28 | PROVIDERS: ATTENDING PHYSICIAN Internal Medicine Critical Care Medicine; FAMILY PHYSICIAN Nurse Practitioner Adult Health | DX: R91.1 Solitary pulmonary nodule (principal) | CPT/HCPCS: 71250 ==